=== PATIENT | female | born 1960 | race Caucasian/White ===

== ENCOUNTER 2024-08-19 14:02 | Outpatient (REF) | payer BC, SELFPAY ==
--- OUTSIDE RECORDS SUMMARY | 2024-08-19 16:20 | XMS_ITS | Continuity of Care Document ---
Author Organization [facility] [address] [facility] [address] [place] [address] Phone [phone] Care Team Providers Care Plating Tank Operator Apprentice Name Role Phone Arabella Forde M.D. Care Team Informati on Spanish Literature Professor [phone] Problems Active Problems Provider Date Morphea Arabella [...] Indications Order ing Provider Date Sulfamethoxazole/Trimethop rim [id number] Tablets take 1 tablet by mouth twice a day for 7 days 14tabs Arabella Forde M.D. 05/30/2024 Vitamin I1700rbg (5000 Ut) Capsules 3 by mouth every week Arabella Forde M.D. 10/27/2022 Levothyroxine Vevgtc173beg Tablets Take 1 Tablet Daily Except 1/2 Tab Sundays 90tabs Arabella Forde M.D. 07/29/2022 Hydroxychloroquine Uwmismd985ot Tablets 1 bid Enrrique Knight, Hqigumlmmq17dl Capsules DR 1 by mouth every other day 90caps Arabella Forde M.D. Pnwvoqlhb540kp Tablets 1 by mouth every day Arabella Forde M.D. Calcium 600 High Gwqanru955ur Tablets Take 1 by mouth qd Unknown [...] Range Note Urinalysis, Complete 05/30/2024 [facility] [place] 1.014 1.005-1.03 0 1 pH 5.5 5.0-7.5 [...] See Comment: 4 Comprehensive Metabolic Panl 11/01/2023 [facility] Glucose 88 mg/dL [...] 88 ML/MIN/1.7 3M2 5 Lipid Panel 11/01/2023 [facility] Cholesterol, Total 171 mg/dL (<200) Triglyceride 78 mg/dL (<150) HDL Chol 75 mg/dL (>39) LDL Cholesterol, Calculated 80 mg/dL (0-130) Non HDL Cholesterol (Calc) 96 mg/dL (<160) Laboratory test finding 11/01/2023 [facility] TSH With Reflex To FT4 2.88 uIU/mL (0.4-4.2) 25Oh Vitamin D 44.8 NG/ML (20-50 ) N-Telopeptide Cross Links, Urine 06/16/2023 [facility] Cross Linked N-Telopeptides 175 6 Creat, Urine 111.0 7 N-Telopeptide/C reat Ratio 18 8 NTX Interpretaion Comment 9 Laboratory test finding 04/25/2023 [facility] TSH With Reflex To FT4 3.81 uIU/mL (0.4-4.2) Comprehensive Metabolic Panl 10/25/2022 [facility] Glucose 95 mg/dL [...] ML/MIN/1.7 3M2 10 Laboratory test finding 10/25/2022 [facility] TSH With Reflex To FT4 2.73 uIU/mL (0.4-4.2) Vitamin B12 2997 pg/mL High (232-1245 ) 25Oh Vitamin D 57.1 NG/ML High (20-50 ) Laboratory test finding 04/20/2022 [facility] Hemoglobin A1c 5.1 % (4.0-5.6) 11 TSH With Reflex To FT4 2.75 uIU/mL (0.4-4.2) Glucose 90 mg/dL (70-99) Urinalysis W/Reflex Culture 04/17/2022 [facility] Appear/Color LIGHT YELLOW 12 SP. [place] 1.011 (1.002-1.0 30) Urine PH 5.5 (5.0-8.0) [...] INDICATE <SEE NOTE> 13 Culture Urine 04/17/2022 [facility] Specimen Description URINE [...] Estab. Unit: nmol BCE Test performed at [facility] [address] 7 Reference range: Not Estab. Unit: mg/dL Test performed by [facility], [address] [place] [address] 8 Reference range: 0 t o 89 [...] value is <or EQ 38 nM BCE/mM SUBSTATION OPERATOR HELPER, or NTx has decreased >or EQ 30% [...] J Bone Min Res.11(1):M757,1995 [place] [address] 10 Creatinine based est imated glomerular filtration (eGFR) in adults is calculated using the National Kidney Foundation recommended 2020 CKD-EPI equation. Estimates GFR from serum creatinine, age and sex. 11 MONITORING: In known diabetic patients, hemoglobin A1c targets should be discussed with health care provider. DIAGNOSTIC USE: The [place] Diabetes Association (ADA) and the World Health [...] 13 CULTURE INDICATED 14 NONE Reflexed from [id number] 15 >100,000 COL/ML ESCH ERICHIA COLI This [...] SUSCEPTIBLE Procedures Date Code Description Status 11/01/2023 97640 Collection Of Venous Blood B y Venipuncture Completed 04/25/2023 52560 Collection Of Venous Blood B y Venipuncture Completed 10/25/2022 36727 Collection Of Venous Blood B y Venipuncture Completed 04/20/2022 47208 Collection Of Venous Blood B y Venipuncture [...] Status Appt Kishore Leo, Closed 2023 [address] [place], [place] [id number] [phone] Gabby Blue Closed [address] [facility] [address] [place] [address] [phone] Puja Paul MD Closed [address] [address] [phone] Kishore Knight, Closed [address] [place] [address] [phone] Daisy Jo Closed [address] [place], [place] 27[address] [phone] Kishore Knight, Closed [address] [place], [place] [id number] [phone] Iliana Blue Closed Physical Therapy [address] [place] [address] [phone] Puja Paul MD Closed [address] [id number] [phone] Kishore Knight, Closed [address] [place] [address] [phone]
[2024-08-19 16:24] LABS: MANUAL DIFF FLAG NO
[2024-08-19 17:08] LABS: Basophils Absolute Auto 0.1 X10*3/uL (0.0-0.2); Basophils Percent Auto 1.3 % (0-2); Eosinophils Absolute Auto 0.2 X10*3/uL (0.0-0.4); Eosinophils Percent Auto 3.9 % (0-4); Hemoglobin 13.8 g/dl (12.0-16.0); Imm Gran Abs Auto 0.02 X10*3/uL (0.00-0.03); Imm Gran Pct Auto 0.4 % (0.0-0.4); Lymphocytes Absolute Auto 1.7 X10*3/uL (1.2-4.9); Lymphocytes Percent Auto 31.1 % (20-40); Mean Corpuscular HGB Conc 34.5 g/dl (31.0-35.0); Mean Corpuscular Hemoglobin 35.1 pg (27.0-33.0); Mean Corpuscular Volume 101.8 fL (80.0-98.0); Mean Platelet Volume 11.7 fL (9.4-12.3); Monocytes Absolute Auto 0.7 X10*3/uL (0.1-1.2); Monocytes Percent Auto 12.9 % (2-11); Neutrophils Absolute Auto 2.8 x10*3/uL (2.0-8.3); Neutrophils Percent Auto 50.4 % (45-73); Platelet Count 173 X10*3/uL (160-400); Red Blood Count 3.93 X10*6/uL (4.20-5.50); Red Cell Distribution Width 11.7 % (11.0-16.0); White Blood Count 5.4 X10*3/uL (4.8-10.8)
[2024-08-19 17:25] LABS: Appearance Urine Clear; Color Urine Yellow; Glucose Urine UA Negative (Negative); Leukocyte Esterase Urine Negative (Negative); Nitrite Urine Negative (Negative); PH 5.5 (5.0-9.0); Specific Gravity - Urine 1.015 (1.005-1.025); Urine Blood Negative (Negative); Urine Ketones Negative (Negative); Urine Protein Negative (Neg-Trace)
[2024-08-19 17:29] LABS: Bacteria Urine None Seen (None Seen); Hyaline Casts Urine 0-2 /LPF (0-2); RBC Urine 0-2 /HPF (0-2); Squamous Epithelial Cell Urine 0-2 /HPF (0-2); WBC Urine 0-5 /HPF (0-5)
[2024-08-19 17:44] LABS: Estimated Glomerular Filt Rate > 60
[2024-08-19 18:27] LABS: Erythrocyte Sedimentation Rate 14 MM/HR (0-20)
[2024-08-20 08:22] LABS: HBS Num1 8.38 mIU/mL (0-7.99); HBsAGNum1 0.52 S/CO (0.00-0.99); Hepatitis B Core Antibody Nonreactive (Nonreactive); Hepatitis B Surface Antigen Negative (Negative); ~Hepatitis C Antibody Nonreactive (Nonreactive)
[2024-08-20 09:55] LABS: HBS Num2 9.05 mIU/mL (0-7.99); HBS Num3 8.64 mIU/mL (0-7.99); ~Hepatitis B Surface Antibody GRAYZONE (Nonreactive)
[2024-08-21 08:18] LABS: Complement C3 153 mg/dL (83-193)
[2024-08-22 05:44] LABS: TS Negative Control Passed; TS Panel A 0; TS Panel B 0; TS Positive Control Passed; TSpotTB Negative (Negative)
== END 2024-08-19 14:03 | disposition home or self-care (01) ==
LOC: HO.LAB 14:02
PROVIDERS: PCP Internal Medicine Endocrinology, Diabetes & Metabolism; Visit Provider Internal Medicine Rheumatology
DX: M35.00 Sjogren syndrome, unspecified (principal); R35.0 Frequency of micturition
CPT/HCPCS: 36415; 81001; 82565; 85025; 85652; 86140; 86160; 86481; 86704; 86706; 86803; 87340

== ENCOUNTER 2024-08-19 14:02 | Outpatient (AMB) | payer BC, SELFPAY ==
--- OUTSIDE RECORDS SUMMARY | 2024-08-19 14:10 | XMS_ITS | Continuity of Care Document ---
Author Organization [facility] [address] tre[address] [facility] [address] [place] [address] Phone [phone] Care Team Providers Care Director Technical Name Role Phone Arabella Forde M.D. Care Team Informati on Swimming Pool Salesperson [phone] Problems Active Problems Provider Date Morphea Arabella Forde M.D. Ons et: 04/20/2022 Hyperprolactinemia Arabella Forde M.D. Onset: 04/20/2022 Hypothyroidism Arabella Forde M.D. Ons et: 04/20/2022 Gastroesophageal reflux disease Arabella Cordova M.D. Onset: 04/20/2022 Obesity Arabella Forde M.D. Ons et: 04/20/2022 Gallstone Arabella Forde M.D. Ons et: 04/20/2022 Sjogren's syndrome Arabella Forde M.D. Onset: 04/20/2022 Nonalcoholic steatohepatitis Arabella alexander M.D. Onset: 04/20/2022 Lymphadenopathy Arabella Forde M.D. Ons et: 04/20/2022 Contracture of palmar fascia Arabella alexander M.D. Onset: 04/20/2022 Inflammatory polyarthropathy Arabella alexander M.D. Onset: 04/20/2022 Hilda thyroiditis Mya Dangelo Onset: 10/25/2022 Osteoporosis Arabella Forde M.D. 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 05/30/2024 Vitamin [id number] (5000 Ut) Capsules 3 by mouth every week Arabella Forde M.D. 10/27/2022 Levothyroxine Dmljsv429xvv Tablets Take 1 Tablet Daily Except 1/2 Tab Sundays 90tabs Arabella Forde M.D. 07/29/2022 Hydroxychloroquine Bjanidb588xv Tablets 1 bid Enrrique Knight, Biazpmkbqx86gm Capsules DR 1 by mouth every other day 90caps Arabella Forde M.D. Aqmukmryg221ei Tablets 1 by mouth every day Arabella Forde M.D. Calcium 600 High Pbfrocg809vz Tablets Take 1 by mouth qd Unknown Vitamin B ComplexCapsules 1 by mouth every day Arabella Forde M.D. Vital Signs Date Vital Result Comment 05/02/2024 3:03pm BP Systolic 100 mmHg BP Diastolic 70 mmHg Heart Rate 74 /min Height 63 inches 5'3 Weight 186.31 lb BMI (Body Mass Index) 33.0 kg/m2 Results Test Acquired Date Facility Test Result H/L Range Note Urinalysis, Complete 05/30/2024 [facility] [place] 1.014 1.005-1.03 0 1 pH 5.5 5.0-7.5 Urine-Color Yellow Yellow Appearance Clear Clear WBC Esterase Trace Abnormal Negative Protein Negative Negative/T race Glucose Negative Negative Ketones Negative Negative Occult Blood Negative Negative Bilirubin Negative Negative Urobilinogen,Se mi-Qn 0.2 mg/dL 0.2-1.0 Nitrite, Urine Negative Negative Microscopic Examination See below: 2 Microscopic Examination TNP WBC 6-10 /hpf Abnormal 0 - 5 RBC None seen /hpf 0 - 2 Epithelial Cells (non renal) None seen /hpf 0 - 10 Epithelial Cells (renal) TNP Casts None seen /lpf None seen Cast Type TNP Crystals TNP Crystal Type TNP Mucus Threads TNP Bacteria None seen None seen/Few Yeast TNP Trichomonas TNP Comment TNP Urine Culture, Comprehensive 05/30/2024 [facility] Urine Culture,Compreh ensive Final report 3 Result 1 See Comment: 4 Comprehensive Metabolic Panl 11/01/2023 [facility] Glucose 88 mg/dL (70-99) BUN 17 mg/dL (8-23) Creatinine 0.8 mg/dL (0.5-1.0) Sodium 140 mmol/L (133-145) Potassium 4.1 mmol/L (3.6-5.2) Chloride 102 mmol/L (98-107) Bicarbonate 24 mmol/L (22-29) Anion Gap 14 (4-17) Albumin 4.6 GM/DL (3.4-4.8) Calcium 9.6 mg/dL (8.6-10.5) Bilirubin,Total 0.3 mg/dL (0-1.2 ) Total Protein 7.1 GM/DL (6.2-8.2 ) Ag Ratio 1.8 Ast 25 U/L (0-32) Alk Phos 63 U/L (35-104) Alt 26 U/L (0-33) Estimated GFR Creatinine 88 ML/MIN/1.7 3M2 5 Lipid Panel 11/01/2023 [facility] Cholesterol, Total 171 mg/dL (<200) Triglyceride 78 mg/dL (<150) HDL Chol 75 mg/dL (>39) LDL Cholesterol, Calculated 80 mg/dL (0-130) Non HDL Cholesterol (Calc) 96 mg/dL (<160) Laboratory test finding 11/01/2023 [facility] TSH With Reflex To FT4 2.88 uIU/mL (0.4-4.2) 25Oh Vitamin D 44.8 NG/ML (20-50 ) N-Telopeptide Cross Links, Urine 06/16/2023 [facility] Cross Linked N-Telopeptides 175 6 Creat, Urine 111.0 7 N-Telopeptide/C reat Ratio 18 8 NTX Interpretaion Comment 9 Laboratory test finding 04/25/2023 [facility] TSH With Reflex To FT4 3.81 uIU/mL (0.4-4.2) Comprehensive Metabolic Panl 10/25/2022 [facility] Glucose 95 mg/dL (70-99) BUN 15 mg/dL (8-23) Creatinine 0.8 mg/dL (0.5-1.0) Sodium 143 mmol/L (133-145) Potassium 4.1 mmol/L (3.6-5.2) Chloride 103 mmol/L (98-107) Bicarbonate 27 mmol/L (22-29) Anion Gap 13 (4-17) Albumin 4.8 GM/DL (3.4-4.8) Calcium 10.2 mg/dL (8.6-10.5) Bilirubin,Total 0.3 mg/dL (0-1.2 ) Total Protein 7.6 GM/DL (6.2-8.2 ) Ag Ratio 1.7 Ast 20 U/L (0-32) Alk Phos 74 U/L (35-104) Alt 17 U/L (0-33) Estimated GFR Creatinine 81 ML/MIN/1.7 3M2 10 Laboratory test finding 10/25/2022 [facility] TSH With Reflex To FT4 2.73 uIU/mL (0.4-4.2) Vitamin B12 2997 pg/mL High (232-1245 ) 25Oh Vitamin D 57.1 NG/ML High (20-50 ) Laboratory test finding 04/20/2022 [facility] Hemoglobin A1c 5.1 % (4.0-5.6) 11 TSH With Reflex To FT4 2.75 uIU/mL (0.4-4.2) Glucose 90 mg/dL (70-99) Urinalysis W/Reflex Culture 04/17/2022 [facility] Appear/Color LIGHT YELLOW 12 SP. [place] 1.011 (1.002-1.0 30) Urine PH 5.5 (5.0-8.0) Urine Albumin NEGATIVE (Neg) Urine Glucose NEGATIVE (Neg) Urine Ketones NEGATIVE (Neg) Urine Bilirubin NEGATIVE (Neg) Urine Hemoglobin NEGATIVE (Neg) Urine Nitrite POSITIVE Abnormal (Neg) Urine Leukocyte 3+ Abnormal (Neg) Urobilinogen NORMAL mg/dL (Norm) Urine WBCs 61 /HPF High (0-5) Urine RBCs 2 /HPF (0-3) Bacteria SLIGHT HPF Abnormal (Neg) Mucus SLIGHT /LPF Squamous Epith 1 /HPF (0-8) Clarity TURBID Abnormal (Clear) Culture Indication CULTURE INDICATE <SEE NOTE> 13 Culture Urine 04/17/2022 [facility] Specimen Description URINE Special Requests NONE Reflexed fr <SEE NOTE> 14 Culture >100,000 COL/ML <SEE NOTE> Abnormal 15 Report Status FINAL 04/20/2022 16 1 SRC:UC 2 Microscopic was kd cated and was performed. 3 Source of Specimen: UC 4 Source of Specimen: UC Mixed urogenital cristopher 10,000-25,000 colony forming units per mL 5 Creatinine based est imated glomerular filtration (eGFR) in adults is calculated using the National Kidney Foundation recommended 2020 CKD-EPI equation. Estimates GFR from serum creatinine, age and sex. 6 Reference range: Not Estab. Unit: nmol BCE Test performed at [facility] [address] 7 Reference range: Not Estab. Unit: mg/dL [facility] [address] [place] [address] 8 Reference range: 0 t o 89 Unit: nM BCE/mM Cr 9 (NOTE) The N-telopeptide and Creatinine are used to calculate the N-telo/Creat. Ratio which is referred to as NTx . Suggested guidelines for the clinical use of NTx are as follows: 1. Menopausal Women not on Hormone Replacement Therapy (HRT): Women with a baseline NTx value >38 are at significant risk for a decrease in bone mineral density (BMD) after 1 year compared to women on HRT. The probability of a decline in BMD increases with NTx value as follows: (1): Baseline NTx Probability of Decrease in BMD 18- 38 1.4 p EQ 0.28 38- 51 2.5 p EQ 0.03 51- 67 3.8 p EQ 0.0006 67-188 17.3 p EQ 0.0001 2. Menopausal Women Receiving Antiresorptive Therapy: The probability that treatment is effective after three months is increased when the measured NTx value is <or EQ 38 nM BCE/mM PROJECT ENGINEERING MANAGER, or NTx has decreased >or EQ 30% from baseline.[1] 3. Patients with Paget's Disease of Bone: The probability that treatment is effective after one month is increased when the measured NTx value is within the reference range, or NTx has decreased >or EQ 30% from baseline.[2] 1. Padma CH, Drea NH, Vincent GS, et al. Am J Med, 102:29-37,1996. (1):M757, 1996. 2. Hector H, Vy Ambrosio, et al. J Bone Min Res.11(1):M757,1995 [place] [address] 10 Creatinine based est imated glomerular filtration (eGFR) in adults is calculated using the National Kidney Foundation recommended 2020 CKD-EPI equation. Estimates GFR from serum creatinine, age and sex. 11 MONITORING: In known diabetic patients, hemoglobin A1c targets should be discussed with health care provider. DIAGNOSTIC USE: The [place] Diabetes Association (ADA) and the World Health Organization (WHO) recommend the use of HbA1c to diagnose diabetes using a threshold of 6.5%. Patients who have an HbA1c between 5.7% and 6.4% are considered at increased risk for developing diabetes in the future. CAUTION: Falsely low HbA1c results may be observed in patients with hemolytic anemia, homozygous forms of abnormal hemoglobin (e.g. SS, CC, SC), , recent blood loss or hemoglobin F greater than 7%. Fructosamine may be used as an alternate test in these cases. REFERENCE: ADA: Standards of Medical Care in Diabetes 2020, The Journal of Clinical and Applied Research and Education Volume 43, Supplement 1 12 TURBID 13 CULTURE INDICATED 14 NONE Reflexed from [id number] 15 >100,000 COL/ML ESCH ERICHIA COLI This isolate was identified using Maldi-TOF system 16 FINAL 04/20/2022 ORGANISM >100,000 COL/ML ESCHERICHIA COLI This isolate was identified using Maldi-TOF system METHOD MIN. INHIB. CONC. (MCG/ML) AMPICILLIN SUSCEPTIBLE AMPICILLIN/SULBACTAM SUSCEPTIBLE AMOXICILLIN/CLAVULAN SUSCEPTIBLE CEFAZOLIN SUSCEPTIBLE CEFEPIME SUSCEPTIBLE CEFTRIAXONE SUSCEPTIBLE CIPROFLOXACIN SUSCEPTIBLE ERTAPENEM SUSCEPTIBLE GENTAMICIN SUSCEPTIBLE LEVOFLOXACIN SUSCEPTIBLE MEROPENEM SUSCEPTIBLE NITROFURANTOIN SUSCEPTIBLE PIPERACILLIN/TAZOBAC SUSCEPTIBLE TRIMETH/SULFAMETHOX SUSCEPTIBLE TETRACYCLINE SUSCEPTIBLE Procedures Date Code Description Status 11/01/2023 42232 Collection Of Venous Blood B y Venipuncture Completed 04/25/2023 66631 Collection Of Venous Blood B y Venipuncture Completed 10/25/2022 42188 Collection Of Venous Blood B y Venipuncture Completed 04/20/2022 08332 Collection Of Venous Blood B y Venipuncture Completed Medical Devices Description No Information Available Encounters Type Date Location Provider Dx Diagnosis Office Visit 05/02/2024 2:45p Main Office Arabella Forde M.D. E03.9 Hypothyroidism, unspecified M35.05 Sjogren syndrome wit h inflammatory arthritis K21.9 Gastro-esophageal re flux disease without esophagitis M81.0 Age-related osteopor osis w/o current pathological fracture Assessments Date Code Description Provider 05/02/2024 E03.9 Hypothyroidism, unspecified Arabella Forde M.D. 05/02/2024 M35.05 Sjogren syndrome with inflammatory arthritis Arabella Forde M.D. 05/02/2024 K21.9 Gastro-esophagea l reflux disease without esophagitis Arabella Forde M.D. 05/02/2024 M81.0 Age-related oste oporosis without current pathological fracture Arabella Forde M.D. Plan of Treatment Future Appointment(s):* 10/31/2024 1:30 pm - Arabella Forde M.D. at Main Office 05/02/2024 - Arabella Forde M.D.* E03.9 Hypothyroidism, unspecified * M35.05 Sjogren syndrome with inflammatory arthritis * K21.9 Gastro-esophageal reflux disease without esophagitis * M81.0 Age-related osteoporosis without current pathological fracture Functional Status Description No Information Available Mental Status Description No Information Available Referrals Refer to Dr Reason for Referral Status Appt Kishore Leo, Closed 2023 [address] [place], [place] [id number] [phone] Gabby Blue Closed [address] [facility] [address] [place] [address] [phone] Puja Paul MD Closed [address] [address] [phone] Kishore Knight, Closed [address] [place] [address] [phone] Daisy Jo Closed [address] [place], [place] [address] [phone] Kishore Knight, Closed [address] [place], [place] 740[address] [phone] Iliana Blue Closed [facility] [address] [place] [address] [phone] Puja Paul MD Closed [address] [id number] [phone] Kishore Knight, Closed [address] [place] [address] [phone]
[2024-08-19 14:12] VITALS: BP 118/64; PULSE 69; O2SAT 98; BMI 34.1
--- NOTE | 2024-08-19 14:12 | MHC.OFFVIS ---
Vital Signs 08/19/24 14:12 Height 5 ft 3 in Weight 192 lb 10.944 oz BMI 34.1 BP 118/64 Blood Pressure Location Lt brachial Position Sitting Pulse 69 Pulse Source Pulse Oximeter Pulse Oximetry (%) 98 Oxygen Delivery Method Room Air Intake Visit Reasons: SS Intake Note: Patient presents for follow up on Sjorgen's syndrome, she needs refill of Leflunomide 20 mg. Allergies diphenhydramine [From Benadryl Allergy] Allergy (Mild, Verified 08/19/24 14:21) restleless legs HPI HPI SS: Details: Urinary frequency and urgency in the last month. She was previously treated with bactrim in May by PCP. Overall less pain since being on leflunomide consistently for the last two months. She held leflunomide when she had a viral illness/COVID-19. Uses sustane as needed. She will be seeing Ophthalmology in September for eye exam. She continues to have dry mouth but it is tolerable. She had labs done in July, which revealed creatinine of 1.2 with estimated GFR 48.2. Review of Systems Const All systems reviewed & are unremarkable except as noted in HPI and below Physical Exam Vital Signs: Last Vital Signs Pulse 69 08/19/24 14:12 BP 118/64 08/19/24 14:12 Pulse Ox 98 08/19/24 14:12 Oxygen Delivery Method Room Air 08/19/24 14:12 BMI result Body Mass Index 34.1 Const Other: General: Comfortable CVS: RRR Respiratory: clear to auscultation bilaterally. Good respiratory effort Skin: No lesions seen MSK: Nontender MCPs with slight synovitis left 2nd and 3rd MCP. Good range of motion of upper extremity and lower extremity. Lymph nodes: Left submandibular lymph node palpated Assessment & Plan Assessment & Plan (1) Sjogren syndrome: Comment: With inflammatory arthritis better controlled since being on leflunomide for the last 2 months. I have reviewed recent labs with patient that reveals MARYLOU when compared to labs from 06/2023. I will repeat labs this visit. Fatigue is uncontrolled. We discussed having intermittent FMLA during flares, which I agree to support. Code(s): M35.00 - Sjogren syndrome, unspecified Category: Medical Qualifiers: Sjogren organ or system involvement: other organ involvement Qualified Code(s): M35.09 - Sjogren syndrome with other organ involvement Plan: Labs ordered Continue hydroxychloroquine 400 mg daily Continue leflunomide 20 mg daily Patient will bring in [facility] paperwork Monitoring cervical lymph nodes clinically. She has previously had ENT evaluation and repeat neck ultrasounds, which have shown stable benign lymph node enlargement. Return to clinic in 3 months (2) Other half-way (current) drug therapy: Code(s): Z79.899 - Other termite control service representative (current) drug therapy Category: Medical Plan: See above (3) Urinary frequency: Comment: Recurrent symptoms. Previously treated for UTI. We will obtain urine studies this visit. Code(s): R35.0 - Frequency of micturition Category: Medical Plan: Urine studies ordered (4) MARYLOU (acute kidney injury): Comment: Creatinine is 1.2 07/2024, which has increased from 0.8 06/2024 Code(s): N17.9 - Acute kidney failure, unspecified Category: Medical Plan: Creatinine ordered See above Orders: Orders T Spot TB Today M35.00 - Sjogren syndrome, unspecified, R35.0 - Frequency of micturition Complement C3 Today M35.00 - Sjogren syndrome, unspecified, R35.0 - Frequency of micturition Hepatitis B,C Profile Today M35.00 - Sjogren syndrome, unspecified, R35.0 - Frequency of micturition Creatinine Today M35.00 - Sjogren syndrome, unspecified, R35.0 - Frequency of micturition Complete Blood Count Auto Diff Today M35.00 - Sjogren syndrome, unspecified, R35.0 - Frequency of micturition C Reactive Protein Today M35.00 - Sjogren syndrome, unspecified, R35.0 - Frequency of micturition Erythrocyte Sedimentation Rate Today M35.00 - Sjogren syndrome, unspecified, R35.0 - Frequency of micturition UA w Microscopic Today M35.00 - Sjogren syndrome, unspecified, R35.0 - Frequency of micturition Complement C4 Today M35.00 - Sjogren syndrome, unspecified, R35.0 - Frequency of micturition Coding Level of Care Code Est Pt Level 4 (08630) Complex EM visit Add On G2211 Diagnoses Sjogren's syndrome with other organ involvement M35.09 Sjogren organ or system involvement: other organ involvement Other half-way (current) drug therapy Z79.899 Urinary frequency R35.0 MARYLOU (acute kidney injury) N17.9
== END 2024-08-19 15:14 | disposition home or self-care (01) ==
PROVIDERS: PCP Internal Medicine Endocrinology, Diabetes & Metabolism; Referring Provider Internal Medicine Endocrinology, Diabetes & Metabolism; Visit Provider Internal Medicine Rheumatology
DX: M35.09 Sjogren syndrome with other organ involvement (principal); Z79.899 Other long term (current) drug therapy; R35.0 Frequency of micturition; N17.9 Acute kidney failure, unspecified
CPT/HCPCS: 99214

== ENCOUNTER 2024-11-19 14:26 | Outpatient (REF) | payer BC, SELFPAY ==
[2024-11-19 18:11] LABS: MANUAL DIFF FLAG NO
[2024-11-19 18:29] LABS: Basophils Absolute Auto 0.1 X10*3/uL (0.0-0.2); Basophils Percent Auto 0.8 % (0-2); Eosinophils Absolute Auto 0.3 X10*3/uL (0.0-0.4); Eosinophils Percent Auto 4.3 % (0-4); Hematocrit 41.1 % (37.0-47.0); Hemoglobin 14.2 g/dl (12.0-16.0); Imm Gran Abs Auto 0.01 X10*3/uL (0.00-0.03); Imm Gran Pct Auto 0.2 % (0.0-0.4); Lymphocytes Absolute Auto 1.5 X10*3/uL (1.2-4.9); Lymphocytes Percent Auto 24.5 % (20-40); Mean Corpuscular HGB Conc 34.5 g/dl (31.0-35.0); Mean Corpuscular Hemoglobin 35.1 pg (27.0-33.0); Mean Corpuscular Volume 101.7 fL (80.0-98.0); Monocytes Absolute Auto 0.7 X10*3/uL (0.1-1.2); Monocytes Percent Auto 11.2 % (2-11); Neutrophils Absolute Auto 3.6 x10*3/uL (2.0-8.3); Platelet Count 185 X10*3/uL (160-400); Red Blood Count 4.04 X10*6/uL (4.20-5.50); Red Cell Distribution Width 11.7 % (11.0-16.0); White Blood Count 6.1 X10*3/uL (4.8-10.8)
[2024-11-19 18:37] LABS: Rheumatoid Factor < 13.0 IU/mL (<15.0)
[2024-11-19 18:39] LABS: Alanine Aminotransferase 40 U/L (0-31); Aspartate Amino Transferase 32 U/L (5-31); C Reactive Protein 0.29 mg/dL (< or = 0.50); Estimated Glomerular Filt Rate > 60
[2024-11-19 19:18] LABS: Erythrocyte Sedimentation Rate 18 MM/HR (0-20)
[2024-11-20 16:32] LABS: Complement C3 161 mg/dL (83-193)
[2024-11-21 18:32] LABS: Antibody to SS-A Antigen <1.0 NEG AI (<1.0 NEG); Antibody to SS-B Antigen <1.0 NEG AI (<1.0 NEG)
[2024-11-25 10:58] LABS: Anti Nuclear Antibody Screen POSITIVE (NEGATIVE)
== END 2024-11-19 14:27 | disposition home or self-care (01) ==
LOC: HO.HKASLDS 14:26
PROVIDERS: PCP Internal Medicine Endocrinology, Diabetes & Metabolism; Visit Provider Internal Medicine Rheumatology
DX: M35.09 Sjogren syndrome with other organ involvement (principal); Z79.60 Long term (current) use of unspecified immunomodulators and immunosuppressants; Z79.899 Other long term (current) drug therapy
CPT/HCPCS: 36415; 82565; 84450; 84460; 85025; 85652; 86038; 86039; 86140; 86160; 86235; 86431

== ENCOUNTER 2024-11-19 14:26 | Outpatient (AMB) | payer BC, SELFPAY ==
[2024-11-19 14:32] VITALS: BP 120/70; PULSE 70; O2SAT 97; BMI 32.8
--- NOTE | 2024-11-19 14:32 | A.OFFVIS_ITS ---
Vital Signs 11/19/24 14:32 Height 5 ft 3 in Weight 185 lb 6.54 oz BMI 32.8 BP 120/70 Blood Pressure Location Lt brachial Position Sitting Pulse 70 Pulse Source Pulse Oximeter Pulse Oximetry (%) 97 Oxygen Delivery Method Room Air Intake Visit Reasons: Follow Up 3mo Intake Note: Patient presents for follow up on Sjorgen's syndrome Allergies diphenhydramine [From Benadryl Allergy] Allergy (Mild, Verified 11/19/24 14:34) restleless legs HPI HPI Follow Up 3mo: Details: She continues to have fatigue. She had to use FMLA on occasion when she has increased fatigue. Joint stiffness in hands is all day. No new joint swelling. She is tolerating leflunomide. She has noted that there is reduction in swelling in her lymph nodes since being on leflunomide. She has had intermittent pain left clavicular region for 4 months. Review of Systems Const All systems reviewed & are unremarkable except as noted in HPI and below Physical Exam Vital Signs: Last Vital Signs Pulse 70 11/19/24 14:32 BP 120/70 11/19/24 14:32 Pulse Ox 97 11/19/24 14:32 Oxygen Delivery Method Room Air 11/19/24 14:32 BMI result Body Mass Index 32.8 Const Other: General: Comfortable CVS: RRR Respiratory: clear to auscultation bilaterally. Good respiratory effort Skin: No lesions seen MSK: Nontender MCPs with slight synovitis left 2nd MCP. She has localized tenderness to proximal clavicle away from sternoclavicular joint. Good range of motion of upper extremity and lower extremity. Lymph nodes: Left submandibular lymph node palpated Assessment & Plan Assessment & Plan (1) Sjogren syndrome: Comment: With inflammatory arthritis better controlled since being on leflunomide. Rheumatology history: She has Sjogren syndrome biopsy-proven with gland focus score 4. JANEY negative. SSA antibody positive. Inflammatory arthritis affecting hands. HCQ 03/2021-, leflunomide 03/2024- Code(s): M35.00 - Sjogren syndrome, unspecified Category: Medical Qualifiers: Sjogren organ or system involvement: other organ involvement Qualified Code(s): M35.09 - Sjogren syndrome with other organ involvement Plan: Continue hydroxychloroquine 400 mg daily. Eye exam 10/2023 OCT okay. Visual field not reliable. She is rescheduled for repeat visual field test in December. Continue leflunomide 20 mg daily Labs for disease monitoring and drug monitoring on high-risk medication ordered Dry eyes: Technical Sourcing Recruiter recommended she try OTC artificial tears. I encouraged patient to try them. Return to clinic in 3 months (2) Pain of left clavicle: Comment: She has four-month history of localized pain to proximal left clavicle of unclear etiology. Code(s): M89.8X1 - Other specified disorders of bone, shoulder Category: Medical Plan: X-ray left clavicle ordered Orders: Orders Complete Blood Count Auto Diff Today Z79.60 - skilled nursing (current) use of unspecified immunomodulators and immunosuppressants Aspartate Amino Transferase Today Z79.60 - skilled nursing (current) use of unspecified immunomodulators and immunosuppressants Complement C3 Today M35.09 - Sjogren syndrome with other organ involvement Rheumatoid Factor Today M35.09 - Sjogren syndrome with other organ involvement JANEY Reflex Titer and Pattern Today M35.09 - Sjogren syndrome with other organ involvement XR clavicle LT Today M89.8X1 - Other specified disorders of bone, shoulder Creatinine Today Z79.60 - terminal worker (current) use of unspecified immunomodulators and immunosuppressants Alanine Aminotransferase Today Z79.60 - skilled nursing (current) use of unspecified immunomodulators and immunosuppressants Erythrocyte Sedimentation Rate Today Z79.899 - Other half-way (current) drug therapy C Reactive Protein Today Z79.899 - Other long wall shear operator (current) drug therapy Complement C4 Today M35.09 - Sjogren syndrome with other organ involvement Sjogren's Antibodies Today M35.09 - Sjogren syndrome with other organ involvement Medications: Changed From hydroxychloroquine 400 mg PO DAILY To hydroxychloroquine Replace previous prescription 400 mg (2 x 200 mg) PO DAILY 60 tabs 5RF Refilled leflunomide 20 mg PO DAILY 90 tabs 0RF Coding Level of Care Code Est Pt Level 4 (32399) Complex EM visit Add On G2211 Diagnoses Sjogren's syndrome with other organ involvement M35.09 Sjogren organ or system involvement: other organ involvement Pain of left clavicle M89.8X1
--- OUTSIDE RECORDS SUMMARY | 2024-11-19 16:47 | XMS_ITS | Continuity of Care Document ---
Author Organization [facility] [address] [facility] [address] [place] [address] Phone [phone] Care Team Providers Care Oracle Sql Developer Name Role Phone Arabella Forde M.D. Care Team Informati on Radiator Mechanic [phone] Problems Active Problems Provider Date Morphea Arabella [...] SIG Qnty Indications Order ing Provider Date Vitamin [id number] (5000 Ut) Capsules 3 by mouth every week Arabella Forde M.D. 10/27/2022 Levothyroxine [id number] Tablets Take 1 Tablet Daily Except 1 Tab Sundays 90tabs Arabella Forde M.D. 07/29/2022 Hydroxychloroquine [id number] Tablets 1 bid Enrrique Knight, Vjiejmcfjv14es Capsules DR 1 by mouth every day prn 90caps Arabella Forde M.D. Tkqwivpwr097rf Tablets 1 by mouth every day Arabella Forde M.D. Calcium 600 High Wyggncp332cb Tablets Take 1 by mouth qd Unknown Vitamin B ComplexCapsules 1 by mouth every day Arabella Forde M.D. Ttniowpoezv31dm Tablets Take 1 Tablet Daily Kishore Knight, History Medications Sulfamethoxazole/Trimethopri m [id number] Tablets take 1 tablet by mouth twice a day for 7 days 14tabs Arabella Forde M.D. 05/30/2024 - 10/31/2024 Vital Signs Date Vital Result Comment 10/31/2024 1:38pm BP Systolic 110 mmHg BP Diastolic 76 mmHg Heart Rate 92 /min Height 63 inches 5'3 Weight 187.25 lb BMI (Body Mass Index) 33.2 kg/m2 Results Test Acquired Date Facility Test Result H/L Range Note TSH Rfx on Abnormal to Free T4 10/31/2024 [facility] TSH Rfx on Abnormal to Free T4 1.990 uIU/mL 0.450-4.50 0 Vitamin D, 25-Hydroxy 10/31/2024 [facility] Vitamin D, 25-Hydroxy 64.0 ng/mL 30.0-100.0 1 Hemoglobin A1c 10/31/2024 [facility] Hemoglobin A1c 5.1 % 4.8-5.6 2 Urinalysis, Complete 05/30/2024 [facility] Specific [place] 1.014 1.005-1.03 0 3 pH 5.5 5.0-7.5 Urine-Color Yellow Yellow Appearance Clear Clear WBC Esterase Trace Abnormal Negative Protein Negative Negative/T race Glucose Negative Negative Ketones Negative Negative Occult Blood Negative Negative Bilirubin Negative Negative Urobilinogen,Se mi-Qn 0.2 mg/dL 0.2-1.0 Nitrite, Urine Negative Negative Microscopic Examination See below: 4 Microscopic Examination TNP WBC 6-10 /hpf Abnormal [...] 05/30/2024 [facility] Urine Culture,Compreh ensive Final report 5 Result 1 See Comment: 6 Comprehensive Metabolic Panl 11/01/2023 [facility] Glucose 88 mg/dL (70-99) [...] (0-33) Estimated GFR Creatinine 88 ML/MIN/1.7 3M2 7 Lipid Panel 11/01/2023 [facility] Cholesterol, Total 171 mg/dL (<200) Triglyceride 78 mg/dL (<150) HDL Chol 75 mg/dL (>39) LDL Cholesterol, Calculated 80 mg/dL (0-130) Non HDL Cholesterol (Calc) 96 mg/dL (<160) TSH With Reflex To FT4 11/01/2023 [facility] TSH With Reflex To FT4 2.88 uIU/mL (0.4-4.2) 25Oh Vitamin D 11/01/2023 [facility] 25Oh Vitamin D 44.8 NG/ML (20-50) N-Telopeptide Cross Links, Urine 06/16/2023 [facility] Cross Linked N-Telopeptides 175 8 Creat, Urine 111.0 9 N-Telopeptide/C reat Ratio 18 10 NTX Interpretaion Comment 11 TSH With Reflex To FT4 04/25/2023 [facility] TSH With Reflex To FT4 3.81 uIU/mL (0.4-4.2) Comprehensive Metabolic Panl 10/25/2022 [facility] Glucose 95 mg/dL (70-99) [...] (0-33) Estimated GFR Creatinine 81 ML/MIN/1.7 3M2 12 TSH With Reflex To FT4 10/25/2022 [facility] TSH With Reflex To FT4 2.73 uIU/mL (0.4-4.2) Vitamin B12 10/25/2022 [facility] Vitamin B12 2997 pg/mL High (232-1245) 25Oh Vitamin D 10/25/2022 [facility] 25Oh Vitamin D 57.1 NG/ML High (20-50) Hemoglobin A1c 04/20/2022 [facility] Hemoglobin A1c 5.1 % (4.0-5.6) 13 TSH With Reflex To FT4 04/20/2022 [facility] TSH With Reflex To FT4 2.75 uIU/mL (0.4-4.2) Glucose 04/20/2022 [facility] Glucose 90 mg/dL (70-99) Urinalysis W/Reflex Culture 04/17/2022 [facility] Appear/Color LIGHT YELLOW 14 SP. [place] 1.011 (1.002-1.0 30) Urine PH 5.5 (5.0-8.0) [...] (Clear) Culture Indication CULTURE INDICATE <SEE NOTE> 15 Culture Urine 04/17/2022 [facility] Specimen Description URINE Special Requests NONE Reflexed fr <SEE NOTE> 16 Culture >100,000 COL/ML <SEE NOTE> Abnormal 17 Report Status FINAL 04/20/2022 18 1 Vitamin D deficiency has been defined by the [place] of [employer] and an Endocrine Society practice guideline as a level of serum 25-OH vitamin D less than 20 ng/mL (1,2). The Endocrine Society went on to further define vitamin D insufficiency as a level between 21 and 29 ng/mL (2). 1. IOM ([place] of [employer]). 2010. Dietary reference intakes for calcium and D. [place]: The National Academies Press. 2. Vaughn HILL, Dennis SORIA, Mukund PATTERSON, et al. Evaluation, treatment, and prevention of vitamin D deficiency: an Endocrine Society clinical practice guideline. JCEM. 2010; 96(7):1911-30. 2 Prediabetes: 5.7 - 6 .4 Diabetes: >6.4 Glycemic control for adults with diabetes: <7.0 3 SRC:UC 4 Microscopic was kd cated and was performed. 5 Source of Specimen: UC 6 Source of Specimen: UC Mixed urogenital cristopher 10,000-25,000 colony forming units per mL 7 Creatinine based est imated glomerular filtration (eGFR) in adults is calculated using the National Kidney Foundation recommended 2020 CKD-EPI equation. Estimates GFR from serum creatinine, age and sex. 8 Reference range: Not Estab. Unit: nmol BCE Test performed at [facility], [address] [place] [address] 9 Reference range: Not Estab. Unit: mg/dL Test performed by [facility], [address] [place] [address] 10 Reference range: 0 t o 89 Unit: nM BCE/mM Cr 11 (NOTE) The N-telopeptide and Creatinine are used [...] value is <or EQ 38 nM BCE/mM CARD HAND, or NTx has decreased >or EQ 30% [...] 102:29-37,1996. (1):M757, 1996. 2. Hector H, Vy J, et al. J Bone Min Res.11(1):M757,1996 Test performed at [address] [address] 12 Creatinine based est imated glomerular filtration (eGFR) in adults is calculated using the National Kidney Foundation recommended 2020 CKD-EPI equation. Estimates GFR from serum creatinine, age and sex. 13 MONITORING: In known diabetic patients, hemoglobin A1c targets should be discussed with health care provider. DIAGNOSTIC USE: The [place] Diabetes Association (ADA) and the World Health [...] Research and Education Volume 43, Supplement 1 14 TURBID 15 CULTURE INDICATED 16 NONE Reflexed from 370757 17 >100,000 COL/ML ESCH ERICHIA COLI This isolate was identified using Maldi-TOF system 18 FINAL 04/20/2022 ORGANISM >100,000 COL/ML ESCHERICHIA COLI This isolate was identified using Maldi-TOF system METHOD MIN. INHIB. CONC. (MCG/ML) AMPICILLIN SUSCEPTIBLE AMPICILLIN/SULBACTAM SUSCEPTIBLE AMOXICILLIN/CLAVULAN SUSCEPTIBLE CEFAZOLIN SUSCEPTIBLE CEFEPIME SUSCEPTIBLE CEFTRIAXONE SUSCEPTIBLE CIPROFLOXACIN SUSCEPTIBLE ERTAPENEM SUSCEPTIBLE GENTAMICIN SUSCEPTIBLE LEVOFLOXACIN SUSCEPTIBLE MEROPENEM SUSCEPTIBLE NITROFURANTOIN SUSCEPTIBLE PIPERACILLIN/TAZOBAC SUSCEPTIBLE TRIMETH/SULFAMETHOX SUSCEPTIBLE TETRACYCLINE SUSCEPTIBLE Procedures Date Code Description Status 10/31/2024 63600 Collection Of Venous Blood B y Venipuncture Completed 11/01/2023 76190 Collection Of Venous Blood B y Venipuncture Completed 04/25/2023 54687 Collection Of Venous Blood B y Venipuncture Completed 10/25/2022 77567 Collection Of Venous Blood B y Venipuncture Completed 04/20/2022 60841 Collection Of Venous Blood B y Venipuncture Completed Medical Devices Description No Information Available Encounters Type Date Location Provider Dx Diagnosis Office Visit 10/31/2024 1:30p Main Office Arabella Forde M.D. Z00.01 Encounter for general adult medical exam w abnormal findings E03.9 Hypothyroidism, unsp ecified E66.9 Obesity, unspecified M81.0 Age-related osteopor osis w/o current pathological fracture M35.05 Sjogren syndrome wit h inflammatory arthritis K21.9 Gastro-esophageal re flux disease without esophagitis Z68.33 Body mass index [BMI ] 33.0-33.9, adult Assessments Date Code Description Provider 10/31/2024 Z00.01 Encounter for ge neral adult medical examination with abnormal findings Arabella Forde M.D. 10/31/2024 E03.9 Hypothyroidism, unspecified Arabella Forde M.D. 10/31/2024 E66.9 Obesity, unspecified Erin Forde M.D. 10/31/2024 M81.0 Age-related oste oporosis without current pathological fracture Arabella Forde M.D. 10/31/2024 M35.05 Sjogren syndrome with inflammatory arthritis Arabella Forde M.D. 10/31/2024 K21.9 Gastro-esophagea l reflux disease without esophagitis Arabella Forde M.D. 10/31/2024 Z68.33 Body mass index [BMI] 33.0-3 3.9, adult Arabella Forde M.D. Plan of Treatment Future Appointment(s):* 04/24/2025 8:15 am - Arabella Forde M.D. at Main Office 10/31/2024 - Arabella Forde M.D.* Z00.01 Encounter for general adult medical examination with abnormal findings * E03.9 Hypothyroidism, unspecified * E66.9 Obesity, unspecified * M81.0 Age-related osteoporosis without current pathological fracture * M35.05 Sjogren syndrome with inflammatory arthritis * K21.9 Gastro-esophageal reflux disease without esophagitis * Z68.33 Body mass index [BMI] 33.0-33.9, adult Functional Status Description No Information Available Mental Status Description No Information Available Referrals Refer to Reason for Referral Status Appt Kishore Leo, Closed [address] [place] [address] [phone] Gabby Blue Closed [address] [address] [phone] Puja Paul MD Closed [address] [address] [phone] Kishore Knight, Closed [address] [place] [address] [phone] Daisy Jo Closed [address] [place] [address] [phone] Kishore Knight, Closed [address] [place] [address] [phone] Iliana Blue Closed Physical Therapy [address] [place] [address] [phone] Puja Paul MD Closed [address] [address] [phone] Kishore Knight, Closed [address] [place] [address] [phone]
--- OUTSIDE RECORDS SUMMARY | 2024-11-19 16:47 | XMS_ITS | Clinical Summary ---
Author Organization [facility] it Address [address] [place] [address] Care Team Providers Care Sprinkling System Installer Name Role Phone Unavailable Primary Care Provider Unavailabl e Social History Tobacco Use Types Packs/Day Years Used Date Smoking Tobacco: Never Assessed Comments Unknown Sex and Gender Information Value Date Recorded Sex Assigned at Not on file Legal Sex Female 11:38 AM EST Gender Identity Not on file Sexual Orientation Not on file Plan of Treatment Health Maintenance Due Date Last Done Comments DTaP,Tdap,and Td Vaccines (1 - Tdap) 1979 Cervical Cancer Screening: Pap Smear 1981 Pneumococcal Vaccine: 50+ Years (1 of 1 - PCV) 2010 Zoster Vaccines (1 of 2) 2010 Colorectal Cancer Screening: Colonoscopy 08/01/2022 Depression Screening 08/01/2022 HIV Screening 08/01/2022 Hepatitis C Screening 08/01/2022 Social Influencers of Health Screening 08/01/2022 COVID-19 Vaccine ( - season) 2024 Influenza Vaccine (#1) 2024 Breast Cancer Screening 11/26/2025 11/27/19 24, 11/24/2022, 11/22/2021, Additional history exists RSV Immunization Patients 60+ Years Old (1 - 1-dose 75+ series) 2035 HIB Vaccines Aged Out No longer eligi ble based on patient's age to complete this topic HPV Vaccines Aged Out No longer eligi ble based on patient's age to complete this topic Hepatitis A Vaccines Aged Out No long er eligible based on patient's age to complete this topic Hepatitis B Vaccines Aged Out No long er eligible based on patient's age to complete this topic IPV Vaccines Aged Out No longer eligi ble based on patient's age to complete this topic MMR Vaccines Aged Out No longer eligi ble based on patient's age to complete this topic Meningococcal ACWY Vaccine Aged Out N o longer eligible based on patient's age to complete this topic Meningococcal B Vacine Aged Out No lo nger eligible based on patient's age to complete this topic Pneumococcal Vaccine: Pediatrics (0 to 5 Years) and At-Risk Patients (6 to 64 Years) Aged Out No longer eligible based on patient's age to complete this topic RSV Immunization Patients Under 20 months Aged Out No longer eligible based on patient's age to complete this topic Varicella Vaccines Aged Out No longer eligible based on patient's age to complete this topic Procedures Procedure Name Priority Date/Time Associated Diagnosis Comments [facility] SCREENING DIGITAL Routine 11/27/2023 3:39 PM EDT Encounter for screening mammogram for malignant neoplasm of breast from Last 3 Months or Most Recently Relevant to Health Maintenance Results * [facility] SCREEN[facility] (11/27/2023 3:39 PM EDT) Anatomical Region Laterality Modality Mammography 11/27/2023 2:33 PM EDT Narrative 11/27/2023 3:39 PM EDT [facility] Diagnostic Imaging Department [address] [place], [place] [id number] Patient: ??TESS HANKINS ?/Age/Sex: 1960 - 63 - F Unit#: ??[id number] ? Location/Status: ??SPDIMAM/REG CLI ? Mnemonic/Ordering Site: ??DIGSC/SPMAM Ordering Physician: ??RAY SHARMA MD [facility] Screening Digital - 11/27/23 - 1515 Report Status:Signed EXAM: [facility] Screening Digital EXAM DATE AND TIME: 11/27/2023 3:16 PM HISTORY: ??Annual screening COMPARISON: ??Multiple exams dating back to 2013 TECHNIQUE: Bilateral digital breast tomosynthesis was performed in the CC and MLO projections. Computer aided detection with [employer] 3D 3.1 was employed. TISSUE DENSITY: b. There are scattered areas of fibroglandular density. FINDINGS: No suspicious masses, grouped microcalcifications, or areas of architectural distortion are seen. The skin and vascularity are unremarkable. IMPRESSION: Stable mammographic appearance of the breasts. ??No evidence of malignancy is seen. A negative mammogram in the presence of a clinically suspicious palpable abnormality does not preclude the possibility of malignancy or alter the indications for biopsy. BI-RADS: ??Category 1: Negative RECOMMENDATION(S): 1: Routine screening mammogram BILATERAL in 1 year. 3341F, 7025F Dictating Physician: ??JOSE ANGEL MERCADO MD Electronically Signed by: ??JOSE ANGEL MERCADO MD Dic Date/Time: ??11/27/23 1537 Sign date/Time: ??11/27/23 1539 Procedure Note Jose Angel Mercado MD - 04/21/2024 [facility] Diagnostic Imaging Department [address] [place] [address] Patient: TESS HANKINS Tala Duckworth/Age/Sex: 1960 - 63 - F Unit#: [id number] [facility]Ordering Site: [facility] Ordering Physician: RAY SHARMA MD [facility] Screening Digital - 11/27/23 - 1515 Report Status:Signed EXAM: [facility] Screening Digital EXAM DATE AND TIME: 11/27/2023 3:16 PM HISTORY: Annual screening COMPARISON: Multiple exams dating back to 2013 TECHNIQUE: Bilateral digital breast tomosynthesis was performed in the CCand MLO projections. Computer aided detection with [employer] 3D 3.1was employed. TISSUE DENSITY: b. There are scattered areas of fibroglandular density. FINDINGS: No suspicious masses, grouped microcalcifications, or areas ofarchitectural distortion are seen. The skin and vascularity are unremarkable. IMPRESSION: Stable mammographic appearance of the breasts. No evidence of malignancyis seen. A negative mammogram in the presence of a clinically suspicious palpable abnormality does not preclude the possibility of malignancy or alter the indications for biopsy. BI-RADS: Category 1: Negative RECOMMENDATION(S): 1: Routine screening mammogram BILATERAL in 1 year. 3341F, 7025F Dictating Physician: JOSE ANGEL MERCADO MD Electronically Signed by: JOSE ANGEL MERCADO MD Dic Date/Time: 11/27/23 1537 Sign date/Time: 11/27/231538 us Ray Sharma MD IMG BI PROCEDURES Final Re sult from Last 3 Months or Most Recently Relevant to Health Maintenance
== END 2024-11-19 14:55 | disposition home or self-care (01) ==
LOC: HO.RHES 14:26
PROVIDERS: PCP Internal Medicine Endocrinology, Diabetes & Metabolism; Visit Provider Internal Medicine Rheumatology
DX: M35.09 Sjogren syndrome with other organ involvement (principal); M89.8X1 Other specified disorders of bone, shoulder
CPT/HCPCS: 99214

== ENCOUNTER 2024-11-20 14:46 | Outpatient (REF) | payer BC, SELFPAY ==
--- NOTE | ~2024-11-20 | XR_ITS ---
CLINICAL HISTORY: M89.8X1 - Other specified disorders of bone, shoulder 2 view left clavicle Comparison: None Findings: Bones intact. No dislocations. No significant loss of joint space or osteophytes. No erosions. No radiopaque foreign body. IMPRESSION: 1. No acute findings This document has been electronically signed by: David Arguelles MD on 11/22/2024 08:27:12
== END 2024-11-20 14:47 | disposition home or self-care (01) ==
LOC: HO.XRAY 14:46
PROVIDERS: PCP Internal Medicine Endocrinology, Diabetes & Metabolism; Visit Provider Internal Medicine Rheumatology
DX: M89.8X1 Other specified disorders of bone, shoulder (principal)
CPT/HCPCS: 73000

== ENCOUNTER → 2024-11-20 14:50 | Outpatient (BNV) | payer BC, SELFPAY | PROVIDERS: PCP Internal Medicine Endocrinology, Diabetes & Metabolism; Visit Provider Specialist | DX: M89.8X1 Other specified disorders of bone, shoulder (principal) | CPT/HCPCS: 73000 ==

== ENCOUNTER 2024-12-24 10:55 | Outpatient (REF) | payer BC, SELFPAY ==
--- OUTSIDE RECORDS SUMMARY | 2024-12-24 13:08 | XMS_ITS | Clinical Summary ---
Author Organization [facility] it Address [address] [place] [address] Care Team Providers Care Assistant Signal Maintainer Name Role Phone Unavailable Primary Care Provider [...] Vaccine ( - season) 2024 Influenza Vaccine (Season Ended) 2025 Breast Cancer Screening 11/26/2025 11/27/19 24, 11/24/2022, 11/22/2021, Additional history exists RSV Immunization Adult Patients (1 - 1-dose 75+ series) 2035 HIB [...] age to complete this topic Meningococcal B Vaccine Aged Out No l onger eligible based on patient's age to complete [...] Procedure Name Priority Date/Time Associated Diagnosis Comments [facility] SCREEN[facility] Routine 11/27/2023 3:39 PM EDT Encounter for screening mammogram for malignant neoplasm of breast from Last 3 Months or Most Recently Relevant to Health Maintenance Results * [facility] SCRE[facility] (11/27/2023 3:39 PM EDT) Anatomical Region Laterality Modality Mammography 11/27/2023 2:33 PM EDT Narrative 11/27/2023 3:39 PM EDT [facility] Diagnostic Imaging Department [address] [place], [place] [id number] Patient: ??TESS HANKINS ?/Age/Sex: 1960 - 63 - F Unit#: ??[id number] ? Location/Status: ??SPDIMAM/REG CLI ? Mnemonic/Ordering Site: ??DIGSC/SPMAM Ordering Physician: ??RAY SHARMA MD [facility] Screening Digital - 11/27/23 - 1554 Report Status:Signed EXAM: [facility] Screening Digital EXAM DATE AND TIME: 11/27/2023 3:16 PM HISTORY: ??Annual screening COMPARISON: ??Multiple exams dating back to 2013 TECHNIQUE: Bilateral digital breast tomosynthesis was performed in the CC and MLO projections. Computer aided detection with [employer] 3D 3.1 was employed. TISSUE DENSITY: b. [...] Note Jose Angel Mercado MD - 04/21/2024 [facility] Diagnostic Imaging Department [address] [place] [address] Patient: TESS HANKINS Tala Duckworth/Age/Sex: 1960 - 63 - F Unit#: [id number] Location/Status: SPDIMAM/REG CLI Mnemonic/Ordering Site: DIGSC/SPMAM Ordering Physician: RAY SHARMA MD [facility] Screening Digital - 11/27/23 - 1515 Report Status:Signed EXAM: [facility] Screening Digital EXAM DATE AND TIME: 11/27/2023 3:16 PM HISTORY: Annual screening COMPARISON: Multiple exams dating back to 2013 TECHNIQUE: Bilateral digital breast tomosynthesis was performed in the CCand MLO projections. Computer aided detection with [employer] 3D 3.1was employed. TISSUE DENSITY: b. There [...] MD Dic Date/Time: 11/27/23 1537 Sign date/Time: 11/27/23 1539 us Ray Sharma MD IMG BI PROCEDURES Final Re sult from Last 3 Months or Most Recently Relevant to Health Maintenance
--- OUTSIDE RECORDS SUMMARY | 2024-12-24 13:08 | XMS_ITS ---
Continuity of Care Document (CCD) Created on: December 24, 2024 Jameeolvin Tess E External Reference #: [id number] : [id number] Sex: Female Author Organization [facility] [address] [facility] [address] [place] [address] Phone [phone] Care Team Providers Care Environmental Protection Specialist Name Role Phone Arabella Forde M.D. Care Team Informati on Quality Management Nurse [phone] Problems Active Problems Provider Date Morphea Arabella [...] Qnty Indications Order ing Provider Date Vitamin [id number] (5000 Ut) Capsules 3 by mouth every week Arabella Forde M.D. 10/27/2022 Levothyroxine [id number] Tablets Take 1 Tablet Daily Except 1 Tab Sundays 90tabs Arabella Forde M.D. 07/29/2022 Hydroxychloroquine Jdwktdm590qn Tablets 1 bid Enrrique Knight, Xuhyoburdf31km Capsules DR 1 by mouth every day prn 90caps Arabella Forde M.D. Oohqtbstf519zg Tablets 1 by mouth every day Arabella Forde M.D. Calcium 600 High Bjjzepe345od Tablets Take 1 by mouth qd Unknown Vitamin B ComplexCapsules 1 by mouth every day Arabella Forde M.D. Liegsozapwg31nq Tablets Take 1 Tablet Daily Kishore Knight, History Medications Sulfamethoxazole/Trimethopri m [id number] Tablets take 1 tablet by mouth twice [...] 4.8-5.6 2 Urinalysis, Complete 05/30/2024 [facility] Specific [place] 1.014 1.005-1.03 0 3 pH 5.5 5.0-7.5 [...] See Comment: 6 Comprehensive Metabolic Panl 11/01/2023 [facility] Glucose 88 mg/dL (70-99) BUN [...] 88 ML/MIN/1.7 3M2 7 Lipid Panel 11/01/2023 [facility] Cholesterol, Total 171 mg/dL (<200) Triglyceride 78 mg/dL (<150) HDL Chol 75 mg/dL (>39) LDL Cholesterol, Calculated 80 mg/dL (0-130) Non HDL Cholesterol (Calc) 96 mg/dL (<160) TSH With Reflex To FT4 11/01/2023 [facility] TSH With Reflex To FT4 2.88 uIU/mL (0.4-4.2) 25Oh Vitamin D 11/01/2023 [facility] 25Oh Vitamin D 44.8 NG/ML (20-50) N-Telopeptide Cross Links, Urine 06/16/2023 [facility] Cross Linked N-Telopeptides 175 8 Creat, Urine 111.0 9 N-Telopeptide/C reat Ratio 18 10 NTX Interpretaion Comment 11 TSH With Reflex To FT4 04/25/2023 [facility] TSH With Reflex To FT4 3.81 uIU/mL (0.4-4.2) Comprehensive Metabolic Panl 10/25/2022 [facility] Glucose 95 mg/dL (70-99) BUN [...] 12 TSH With Reflex To FT4 10/25/2022 [facility] TSH With Reflex To FT4 2.73 uIU/mL (0.4-4.2) Vitamin B12 10/25/2022 [facility] Vitamin B12 2997 pg/mL High (232-1245) 25Oh Vitamin D 10/25/2022 [facility] 25Oh Vitamin D 57.1 NG/ML High (20-50) Hemoglobin A1c 04/20/2022 [facility] Hemoglobin A1c 5.1 % (4.0-5.6) 13 TSH With Reflex To FT4 04/20/2022 [facility] TSH With Reflex To FT4 2.75 uIU/mL (0.4-4.2) Glucose 04/20/2022 [facility] Glucose 90 mg/dL (70-99) Urinalysis W/Reflex Culture 04/17/2022 [facility] Appear/Color LIGHT YELLOW 14 SP. [place] 1.011 (1.002-1.0 30) Urine PH 5.5 (5.0-8.0) [...] INDICATE <SEE NOTE> 15 Culture Urine 04/17/2022 [facility] Specimen Description URINE Special Requests NONE Reflexed fr <SEE NOTE> 16 Culture >100,000 COL/ML <SEE NOTE> Abnormal 17 Report Status FINAL 04/20/2022 18 1 Vitamin D deficiency has been defined by the [place] [employer] and an Endocrine Society practice guideline as a level of serum 25-OH vitamin D less than 20 ng/mL (1,2). The Endocrine Society went on to further define vitamin D insufficiency as a level between 21 and 29 ng/mL (2). 1. IOM ([place] [employer]). 2010. Dietary reference intakes for [...] Estab. Unit: nmol BCE [facility], [address] [place] [address] 9 Reference range: Not Estab. Unit: mg/dL Test performed by [facility], [address] [place] [address] 10 Reference range: 0 t o 89 [...] value is <or EQ 38 nM BCE/mM PULLEY MORTISER OPERATOR, or NTx has decreased >or EQ 30% [...] J Bone Min Res.11(1):M757,1996 Test performed at [address] [address] 12 Creatinine based est imated glomerular filtration (eGFR) in adults is calculated using the National Kidney Foundation recommended 2020 CKD-EPI equation. Estimates GFR from serum creatinine, age and sex. 13 MONITORING: In known diabetic patients, hemoglobin A1c targets should be discussed with health care provider. DIAGNOSTIC USE: The [place] Diabetes Association (ADA) and the World Health [...] 15 CULTURE INDICATED 16 NONE Reflexed from 371453 17 >100,000 COL/ML ESCH ERICHIA COLI This [...] SUSCEPTIBLE Procedures Date Code Description Status 10/31/2024 33099 Collection Of Venous Blood B y Venipuncture Completed 11/01/2023 41793 Collection Of Venous Blood B y Venipuncture Completed 04/25/2023 37165 Collection Of Venous Blood B y Venipuncture Completed 10/25/2022 44964 Collection Of Venous Blood B y Venipuncture Completed 04/20/2022 77003 Collection Of Venous Blood B y Venipuncture [...] Status Appt Kishore Leo, Closed 20[address] [place] [address] [phone] Gabby Blue Closed [address] [address] [phone] Puja Paul MD Closed [address] [address] [phone] Kishore Knight, Closed [address] [place] [address] [phone] Daisy Jo Closed [address] [place] [address] [phone] Kishore Knight, Closed [address] [place] [address] [phone] Iliana Blue Closed Physical Therapy [address] [place] [address] [phone] Puja Paul MD Closed [address] [address] [phone] Kishore Knight, Closed [address] [place] [address] [phone]
[2024-12-24 18:12] LABS: Alanine Aminotransferase 45 U/L (0-31); Aspartate Amino Transferase 38 U/L (5-31)
[2024-12-24 18:16] LABS: Alanine Aminotransferase 46 U/L (0-31); Albumin Level 4.2 g/dL (3.5-5.0); Alkaline Phosphatase 62 U/L (39-117); Aspartate Amino Transferase 37 U/L (5-31); Bilirubin Direct 0.1 mg/dL (0.0-0.5); Bilirubin Total 0.3 mg/dL (0.0-1.0); Total Protein 7.3 g/dL (6.5-8.0)
== END 2024-12-24 10:56 | disposition home or self-care (01) ==
LOC: HO.HKASLDS 10:55
PROVIDERS: Visit Provider Internal Medicine Rheumatology
DX: R74.01 Elevation of levels of liver transaminase levels (principal); Z79.899 Other long term (current) drug therapy
CPT/HCPCS: 36415; 80076; 84450; 84460

== ENCOUNTER 2025-02-19 12:52 | Outpatient (AMB) | payer BC, SELFPAY ==
--- NOTE | 2025-02-19 12:55 | A.OFFVIS_ITS ---
Vital Signs 02/19/25 13:02 Height 5 ft 3 in Weight 185 lb BMI 32.8 BP 115/70 Blood Pressure Location Rt brachial Position Sitting Pulse 70 Pulse Oximetry (%) 98 Oxygen Delivery Method Room Air Intake Visit Reasons: 3 Months Intake Note: Patient presents for 3 months follow up. Allergies diphenhydramine (From Benadryl Allergy) Allergy (Mild, Verified 02/19/25 12:59) restleless legs HPI HPI 3 Months: Details: MS hands all day. No recent infections. She has noticed decreased swelling in her lymph nodes in her neck since being on leflunomide. Recently she is experiencing temporal headache. Eyelid is swollen since December. She is on an antibiotic for possible tooth infection around her crown, which has improved per her dentist's evaluation. Retired 2 days ago. PFSH Family History (Updated 02/19/25 @ 13:01 by NOEMY Christie) Mother Hypertension Diverticulitis Social History (Updated 02/19/25 @ 13:02 by NOEMY Christie) Household Members: Spouse Housing: House Alcohol intake: current Comment: Ocassionally Patient Tobacco Use Status: Never used Tobacco Physical Exam Vital Signs: Last Vital Signs Pulse 70 02/19/25 13:02 BP 115/70 02/19/25 13:02 Pulse Ox 98 02/19/25 13:02 Oxygen Delivery Method Room Air 02/19/25 13:02 BMI result Body Mass Index 32.8 Const Other: General: Comfortable CVS: RRR Respiratory: clear to auscultation bilaterally. Good respiratory effort Skin: No lesions seen MSK: No joint pain. No synovitis. Normal range of motion of upper extremity and lower extremity. Lymph nodes: Left submandibular lymph node palpated without change Assessment & Plan Assessment & Plan (1) Sjogren syndrome: Comment: With inflammatory arthritis better controlled since being on leflunomide. Leflunomide dose was reduced due to transaminitis. Rheumatology history: She has Sjogren syndrome biopsy-proven with gland focus score 4. JANEY negative. SSA antibody positive. Inflammatory arthritis affecting hands. HCQ 03/2021-, leflunomide 03/2024- Code(s): M35.00 - Sjogren syndrome, unspecified Category: Medical Qualifiers: Sjogren organ or system involvement: other organ involvement Qualified Code(s): M35.09 - Sjogren syndrome with other organ involvement Plan: Continue hydroxychloroquine 400 mg daily. Eye exam 10/2023 OCT okay. Visual field not reliable. She had a repeat visual field tests in December. I am requesting clinic note/letter for hydroxychloroquine surveillance Continue leflunomide 20 mg daily Labs for disease monitoring and drug monitoring on high-risk medication ordered. If LFTs remain elevated, I will discontinue leflunomide Dry eyes: Bung Dropper recommended she try OTC artificial tears. Return to clinic in 3 months (2) Pain of left clavicle: Comment: She has four-month history of localized pain to proximal left clavicle without pain of unclear etiology. X-ray left clavicle was unremarkable. Code(s): M89.8X1 - Other specified disorders of bone, shoulder Category: Medical Plan: Monitor clinically Orders: Orders Complete Blood Count Man Dif Today M35.09 - Sjogren syndrome with other organ involvement, R74.01 - Elevation of levels of liver transaminase levels, Z79.899 - Other senior living (current) drug therapy Alanine Aminotransferase Today M35.09 - Sjogren syndrome with other organ involvement, R74.01 - Elevation of levels of liver transaminase levels, Z79.899 - Other senior living (current) drug therapy Erythrocyte Sedimentation Rate Today M35.09 - Sjogren syndrome with other organ involvement, R74.01 - Elevation of levels of liver transaminase levels, Z79.899 - Other senior living (current) drug therapy Aspartate Amino Transferase Today M35.09 - Sjogren syndrome with other organ involvement, R74.01 - Elevation of levels of liver transaminase levels, Z79.899 - Other senior living (current) drug therapy Creatinine Today M35.09 - Sjogren syndrome with other organ involvement, R74.01 - Elevation of levels of liver transaminase levels, Z79.899 - Other long wall shear operator (current) drug therapy C Reactive Protein Today M35.09 - Sjogren syndrome with other organ involvement, R74.01 - Elevation of levels of liver transaminase levels, Z79.899 - Other long wall shear operator (current) drug therapy Coding Level of Care Code Est Pt Level 4 (54091) Complex EM visit Add On G2211 Diagnoses Sjogren's syndrome with other organ involvement M35.09 Sjogren organ or system involvement: other organ involvement Pain of left clavicle M89.8X1
[2025-02-19 13:02] VITALS: BP 115/70; PULSE 70; O2SAT 98; BMI 32.8
--- OUTSIDE RECORDS SUMMARY | 2025-02-19 13:59 | XMS_ITS | Patient Health Record ---
Author Organization [facility] Tito Burgos Address [address] [place] [address] Care Team Providers Care Gravity Prospecting Supervisor Name Role Phone Maurisio DAVEY, Arabella Primary Care Provider Unavailable Catrina Quintanilla Unavailable [phone] Allergies Allergen (clinical drug ingredient) Drug/Non Drug Allergy documented on EMR Reaction Allergy Type Onset Date Status diphenhydramine Benadryl restless legs Drug Allergy Active Reason For Referral Diagnosis 1 Pain in unspecified foot (M79.673) Referring Provider First Name Arabella Referring Provider Last Name Charly moe [facility]erred Provider Catrina Quintanilla Referred Address [address] [place], [place],[address],[place] Referred Provider Specialty Podiatry Referral Priority Routine Medications Medication SIG (Take, Route, Frequency, Duration) Notes Start Date End Date Status Synthroid 112 MCG 1 tablet in the morning on an empty stomach Orally Once a day Active Vitamin D-Vitamin K Active Hydroxychloroquine Sulfate 4 00 MG as directed Orally Active Magnesium Glycinate Active Systane Active Flonase Active Famotidine 20 MG 1 tablet at bedtime as needed Orally Once a day Active B Complex Active Calcium Citrate 250 MG 1 tablet Orally O nce a day Active Social History Tobacco Use: Social History Observation Description Date Details (start date - stop date) Never Smoker NA - NA Tobacco use other than smoking: Question Answer Notes Are you an other tobacco user? No Tobacco Control (Standard) Question Answer Notes Tobacco use: Nonsmoker Additional Findings: Tobacco non-user Current no nsmoker AUDIT-C (Standard) Question Answer Notes Did you have a drink containing alcohol in the p ast year? 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.22 Assessments Encounter Date Diagnosis (ICD Code) Assessment Notes Treatment Notes Treatment Clinical Notes Section Notes 02/03/2025 Pain in left foot (ICD-10 - M79.672) 02/03/2025 Plantar fibromatosis (ICD-10 - M72.2) 02/03/2025 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 (ICD-10 - D21.22) Plan Of Treatment No Information Insurance Providers Payer Name Payer Address Payer Phone Subscriber Number Group Number Insured Name Patient Relationship to Insured Coverage Start Date Coverage End Date [facility] [address] [place] [address] [phone] [id number] Tess Bennett Self - patient is the insured Medical (General) History Medical History History ICD Code osteoarthritis Back,Hip,and Knee pain Broken bones basal cell carcinoma covid-19 Diverticulosis Fibromyalgia Gall bladder sludge Osteoporosis Reflux ( GERD) Scleroderma Sjogren syndrome thyroid Hashimotos thyroiditis Warts Varicose veins pneumonia w/ sepsis Dupytrens contracture Surgical History Surgery Date(Month/Year) wisdom teeth extraction 1978 1988 vein stripping and ligation 2003
== END 2025-02-19 13:44 | disposition home or self-care (01) ==
PROVIDERS: PCP Internal Medicine Endocrinology, Diabetes & Metabolism; Visit Provider Internal Medicine Rheumatology
DX: M35.09 Sjogren syndrome with other organ involvement (principal); M89.8X1 Other specified disorders of bone, shoulder
CPT/HCPCS: 99214

== ENCOUNTER 2025-02-19 12:52 | Outpatient (REF) | payer BC, SELFPAY ==
[2025-02-19 17:41] LABS: Baso%MD 0.9 %; Eos%MD 4.2 %; Hematocrit 42.1 % (37.0-47.0); Hemoglobin 14.2 g/dl (12.0-16.0); IG%MD 0.3 %; Lymph%MD 20.7 %; Mean Corpuscular HGB Conc 33.7 g/dl (31.0-35.0); Mean Corpuscular Hemoglobin 34.9 pg (27.0-33.0); Mean Corpuscular Volume 103.4 fL (80.0-98.0); Mean Platelet Volume 11.3 fL (9.4-12.3); Mono%MD 10.9 %; Platelet Count 202 X10*3/uL (160-400); Red Blood Count 4.07 X10*6/uL (4.20-5.50); Red Cell Distribution Width 11.8 % (11.0-16.0); White Blood Count 6.9 X10*3/uL (4.8-10.8)
[2025-02-19 17:53] LABS: Alanine Aminotransferase 24 U/L (0-31); Aspartate Amino Transferase 24 U/L (5-31); C Reactive Protein 0.43 mg/dL (< or = 0.50); Estimated Glomerular Filt Rate > 60
[2025-02-19 18:29] LABS: Erythrocyte Sedimentation Rate 13 MM/HR (0-20)
[2025-02-19 22:15] LABS: Atypical Lymph Absolute Manual 0.1 x10*3/uL; Atypical Lymphs Percent Manual 1 % (0-6); Band Neutrophils Percent 0 % (3-5); Eosinophils Absolute Manual 0.1 X10*3/uL (0.0-0.4); Eosinophils Percent Manual 2 % (0-4); Lymphocytes Absolute Manual 1.7 X10*3/uL (1.2-4.9); Lymphocytes Percent Manual 24 % (20-40); Monocytes Absolute Manual 0.6 X10*3/uL (0.1-1.2); Monocytes Percent Manual 8 % (2-11); Neutrophils Absolute Manual 4.5 X10*3/uL (2.0-8.3); Neutrophils Percent Manual 65 % (45-73); Platelet Estimate NORMAL (NORMAL); Platelet Morphology Comment NORMAL; RBC Morphology NORMAL
== END 2025-02-19 12:53 | disposition home or self-care (01) ==
LOC: HO.HKASLDS 12:52
PROVIDERS: PCP Internal Medicine Endocrinology, Diabetes & Metabolism; Visit Provider Internal Medicine Rheumatology
DX: R74.01 Elevation of levels of liver transaminase levels (principal); M35.09 Sjogren syndrome with other organ involvement; Z79.899 Other long term (current) drug therapy
CPT/HCPCS: 36415; 82565; 84450; 84460; 85007; 85027; 85652; 86140

== ENCOUNTER 2025-05-21 13:20 | Outpatient (AMB) | payer OTHER, SELFPAY ==
[2025-05-21 13:33] VITALS: BP 130/80; PULSE 77; O2SAT 99; BMI 34.0
--- NOTE | 2025-05-21 13:33 | A.OFFVIS_ITS ---
Vital Signs 05/21/25 13:33 Height 5 ft 3 in Weight 191 lb 12.835 oz BMI 34.0 BP 130/80 Blood Pressure Location Lt brachial Position Sitting Pulse 77 Pulse Source Pulse Oximeter Pulse Oximetry (%) 99 Oxygen Delivery Method Room Air Intake Visit Reasons: 3 months Intake Note: Patient presents for 3 months follow up for sjorgens. Accompanied by: Self / Same As Patient Allergies diphenhydramine (From Benadryl Allergy) Allergy (Mild, Verified 05/21/25 13:35) restleless legs HPI HPI 3 months: Details: She held leflunomide due to tooth infection while on abx. SHe had increase joint pain and stiffness. Resumed leflunomide 3 weeks ago. While off of leflunomide she had increased joint pain and stiffness, which is now improving since she is back on it. No new joint swelling. Dx lichen sclerosis left leg recently by Dermatology. PFSH Medical History Lichen sclerosus Family History Mother Hypertension Diverticulitis Social History Household Members: Spouse Housing: House Alcohol intake: current Comment: Ocassionally Patient Tobacco Use Status: Never used Tobacco Physical Exam Vital Signs: Last Vital Signs Pulse 77 05/21/25 13:33 BP 130/80 05/21/25 13:33 Pulse Ox 99 05/21/25 13:33 Oxygen Delivery Method Room Air 05/21/25 13:33 BMI result Body Mass Index 34.0 Const Other: General: Comfortable CVS: RRR Respiratory: clear to auscultation bilaterally. Good respiratory effort Skin: No lesions seen MSK: No joint pain. Synovitis of left 2nd and 3rd MCP. Normal range of motion of upper extremity and lower extremity. Assessment & Plan Assessment & Plan (1) Sjogren syndrome: Comment: With inflammatory arthritis. She has recurrences synovitis of left 2nd and 3rd MCPs since holding leflunomide after tooth infection. Rheumatology history: She has Sjogren syndrome biopsy-proven with gland focus score 4. JANEY negative. SSA antibody positive. Inflammatory arthritis affecting hands. HCQ 03/2021-, leflunomide 03/2024- dose reduced to 10 mg q.d. due to transaminitis. Code(s): M35.00 - Sjogren syndrome, unspecified Category: Medical Qualifiers: Sjogren organ or system involvement: other organ involvement Qualified Code(s): M35.09 - Sjogren syndrome with other organ involvement Plan: Continue hydroxychloroquine 400 mg daily. Eye exam 10/2023 OCT okay. Visual field 12/30/2024 ok. Continue leflunomide 10 mg daily Labs for disease monitoring and drug monitoring on high-risk medication ordered Dry eyes: Flight Radio Operator recommended she try OTC artificial tears. Return to clinic in 3 months (2) Osteoarthritis of right knee: Comment: Intermittent right knee clicking and pain is due to osteoarthritis. X-ray from 2022 reveals bilateral knee osteoarthritis ([facility] records). We discussed conservative management. Code(s): M17.11 - Unilateral primary osteoarthritis, right knee Category: Medical Plan: Encouraged weight loss She declined PT at this time but will consider it if symptoms become more frequent Return to clinic in 3 months Orders: Orders Aspartate Amino Transferase Today Z79.60 - penitentiary (current) use of unspecified immunomodulators and immunosuppressants Creatinine Today Z79.60 - penitentiary (current) use of unspecified immunomodulators and immunosuppressants Alanine Aminotransferase Today Z79.60 - penitentiary (current) use of unspecified immunomodulators and immunosuppressants Erythrocyte Sedimentation Rate Today Z79.60 - penitentiary (current) use of unspecified immunomodulators and immunosuppressants C Reactive Protein Today Z79.60 - penitentiary (current) use of unspecified immunomodulators and immunosuppressants Complete Blood Count Auto Diff Today Z79.60 - ocean transportation intermediary (current) use of unspecified immunomodulators and immunosuppressants Medications: Refilled leflunomide 10 mg PO DAILY 90 tabs 0RF 90 days M35.09 - Sjogren syndrome with other organ involvement Coding Level of Care Code Est Pt Level 4 (48086) Complex EM visit Add On G2211 Diagnoses Sjogren's syndrome with other organ involvement M35.09 Sjogren organ or system involvement: other organ involvement Osteoarthritis of right knee M17.11
--- OUTSIDE RECORDS SUMMARY | 2025-05-21 15:21 | XMS_ITS | Clinical Summary ---
Author Organization [facility] Address [address] [place] [phone] Phone Care Team Providers Care Fence Installer Name Role Phone Grace Wu MD Primary Care Provid er Encounters Date Type Department Care Team Description 04/09/2025 2:42 PM EDT - 04/09/2025 11:59 PM EDT Hospital Encounter [facility] Ultrasound [address] [place] [phone] Breast asymmetry Discharge Disposition: Home or Self Care 04/09/2025 1:49 PM EDT - 04/09/2025 11:59 PM EDT [facility]counter [facility] at [address] [phone] Breast asymmetry Discharge Disposition: Home or Self Care 03/18/2025 10:00 AM EDT - 03/18/2025 11:59 PM EDT Hospital Encounter [facility] at [address] [phone] Encounter for screening mammogram for breast cancer Discharge Disposition: Home or Self Care from Last 3 Months Social History Tobacco Use Types Packs/Day Years Used Date Smoking Tobacco: Never Assessed Comments No Sex and Gender Information Value Date Recorded Sex Assigned at Female 03/19/2025 11:58 AM EDT Legal Sex Female 11:38 AM EST Gender Identity Female 03/19/2025 11:58 AM EDT Sexual Orientation Not on file Obstetrics History Para Term AB IAB SAB Ectopic Multiple Livin g Live Births 4 Last Filed Vital Signs Vital Sign Reading Time Taken Comments Blood Pressure - - Pulse - - Temperature - - Respiratory Rate - - Oxygen Saturation - - Inhaled Oxygen Concentration - - Weight 84.4 kg (186 lb) 03/18/2025 10:17 AM EDT Height 160 cm (5' 3 ) 03/18/2025 10:17 AM EDT Body Mass Index 32.95 03/18/2025 10:17 AM EDT Plan of Treatment Health Maintenance Due Date Last Done Comments DTaP,Tdap,and Td Vaccines (1 - Tdap) 1979 Hepatitis A Vaccines (1 of 2 - Risk 2-dose series) 1979 Cervical Cancer Screening: Pap Smear 1981 Pneumococcal Vaccine: 50+ Years (1 of 1 - PCV) 2010 Zoster Vaccines (1 of 2) 2010 Hepatitis B Vaccines (1 of 3 - Risk 3-dose series) 2020 RSV Immunization Adult Patients (1 - Risk 60-74 years 1-dose series) 2020 Cholesterol Screening (Lipid Panel) 08/01/2022 Colorectal Cancer Screening: Colonoscopy 08/01/2022 HIV Screening 08/01/2022 Hepatitis C Screening 08/01/2022 Medicare Annual Wellness Visit 08/01/2022 Social Influencers of Health Screening 08/01/2022 Depression Screening 09/03/2024 COVID-19 Vaccine ( season) 2025 08/01/2022, 07/01/2021, 10/07/2020, Additional history exists Influenza Vaccine (#1) 2025 3, 06/12/2022, 05/31/2021, Additional history exists Breast Cancer Screening 04/09/2027 04/09/20 25, 03/18/2025, 11/27/2023, Additional history exists Osteoporosis Screening (Bone Density Screening) 05/23/2033 05/23/2023, 05/05/2021, 07/31/2018 HIB Vaccines Aged Out No longer eligi [...] Procedure Name Priority Date/Time Associated Diagnosis Comments MG MAMMO DIGITAL DIAGNOSTIC W JUAN LEFT Routine 04/09/2025 3:15 PM EDT Breast asymmetry US BREAST LIMITED LEFT Routine 04/09/2025 3:04 PM EDT Breast asymmetry MG MAMMO DIGITAL SCREENING W JUAN BILAT Routine 03/18/2025 10:21 AM EDT Encounter for screening mammogram for breast cancer [facility] DEXA AXIAL SKELETON Routine 05/23/2023 7:43 AM EDT Encounter for screening for osteoporosis from Last 3 Months or Most Recently Relevant to Health Maintenance Results * MG Mammo Digital Diagnostic w Juan Left (04/09/2025 3:15 PM EDT) Anatomical Region Laterality Modality Breast Left Mammography 04/09/2025 3:46 PM EDT Impressions 04/09/2025 3:50 PM EDT No persistent suspicious abnormality. The area of original mammographic concern becomes much less prominent with diagnostic assessment. Recommend diagnostic left mammography in 6 months to assess for interval changes ASSESSMENT: BI-RADS 3: PROBABLY BENIGN RECOMMENDATION(S): 1: Follow-up diagnostic mammogram LEFT in 6 months. [facility]amm[facility] location[facility] at [address], [id number] -------- FINAL REPORT -------- Dictated By: Stanton Ayaal Dictated Date: 04/09/2025 15:46 ET Assigned Physician: Stanton Ayala Reviewed and Electronically Signed By: Stanton Ayala Signed Date: 04/09/2025 15:50 ET Workstation ID: [id number] Transcribed By: Self Edit Transcribed Date: 04/09/2025 15:46 ET Narrative 04/09/2025 3:50 PM EDT EXAM: DIAGNOSTIC MAMMOGRAPHY, UNILATERAL LEFT ULTRASOUND: DIAGNOSTIC ULTRASOUND, UNILATERAL LEFT HISTORY: Abnormal screening mammogram. Focal asymmetry 2 o'clock position 6 cm from left nipple COMPARISON: Left mammography 03/18/25 TECHNIQUE: Tomosynthesis of the left breast using full field technique in the mediolateral projection. ADDITIONAL IMAGING: Tomosynthesis of the left breast and multiple projections using spot compression. High-frequency linear transducer ultrasound of the left breast targeted to the area(s) of clinical concern. Computer aided detection was not utilized. TISSUE DENSITY: There are scattered areas of fibroglandular density. (BI-RADS category B) FINDINGS: MAMMOGRAPHY: LEFT BREAST: The asymmetry in the 2 o'clock position left breast becomes much less prominent. There is no discrete targetable abnormality. No new suspicious left breast finding ULTRASOUND: LEFT BREAST The 2 o'clock region was examined with a high-frequency linear transducer. There is no suspicious mass. No suspicious area of altered echotexture. Procedure Note Stanton Ayala MD - 04/09/2025 EXAM: DIAGNOSTIC MAMMOGRAPHY, UNILATERAL LEFT ULTRASOUND: DIAGNOSTIC ULTRASOUND, UNILATERAL LEFT HISTORY: Abnormal screening mammogram. Focal asymmetry 2 o'clockposition 6 cm from left nipple COMPARISON: Left mammography 03/18/25 TECHNIQUE: Tomosynthesis of the left breast using full field technique inthe mediolateral projection. ADDITIONAL IMAGING: Tomosynthesis of the left breast and multipleprojections using spot compression. High-frequency linear transducer ultrasound of the left breast targeted tothe area(s) of clinical concern. Computer aided detection was not utilized. TISSUE DENSITY: There are scattered areas of fibroglandular density.(BI-RADS category B) FINDINGS: MAMMOGRAPHY: LEFT BREAST: The asymmetry in the 2 o'clock position left breast becomes much lessprominent. There is no discrete targetable abnormality. No new suspicious left breast finding ULTRASOUND: LEFT BREAST The 2 o'clock region was examined with a high-frequency lineartransducer. There is no suspicious mass. No suspicious area of altered echotexture. IMPRESSION: No persistent suspicious abnormality. The area of original mammographic concern becomes much less prominent withdiagnostic assessment. Recommend diagnostic left mammography in 6 months to assess for intervalchanges ASSESSMENT: BI-RADS 3: PROBABLY BENIGN RECOMMENDATION(S): 1: Follow-up diagnostic mammogram LEFT in 6 months. [facility]amm[facility] location[facility] at [address], [address] -------- FINAL REPORT -------- Dictated By: Stanton Ayala Dictated Date: 04/09/2025 15:46 ET Assigned Physician: Stanton Ayala Reviewed and Electronically Signed By: Stanton Ayala Signed Date: 04/09/2025 15:50 ET Workstation ID: [id number] Transcribed By: Self Edit Transcribed Date: 04/09/2025 15:46 ET us Grace Wu MD IMG BI PROCEDURES Fi nal Result * US Breast Limited Left (04/09/2025 3:04 PM EDT) Anatomical Region Laterality Modality Breast Left Ultrasound 04/09/2025 3:46 PM EDT Impressions 04/09/2025 3:50 PM EDT No persistent suspicious abnormality. The area of original mammographic concern becomes much less prominent with diagnostic assessment. Recommend diagnostic left mammography in 6 months to assess for interval changes ASSESSMENT: BI-RADS 3: PROBABLY BENIGN RECOMMENDATION(S): 1: Follow-up diagnostic mammogram LEFT in 6 months. Mammography location: [facility] at [address], [address] -------- FINAL REPORT -------- Dictated By: Stanton Ayala Dictated Date: 04/09/2025 15:46 ET Assigned Physician: Stanton Ayala Reviewed and Electronically Signed By: Stanton Ayala Signed Date: 04/09/2025 15:50 ET Workstation ID: [id number] Transcribed By: Self Edit Transcribed Date: 04/09/2025 15:46 ET Narrative 04/09/2025 3:50 PM EDT EXAM: DIAGNOSTIC MAMMOGRAPHY, UNILATERAL LEFT ULTRASOUND: DIAGNOSTIC ULTRASOUND, UNILATERAL LEFT HISTORY: Abnormal screening mammogram. Focal asymmetry 2 o'clock position 6 cm from left nipple COMPARISON: Left mammography 03/18/25 TECHNIQUE: Tomosynthesis of the left breast using full field technique in the mediolateral projection. ADDITIONAL IMAGING: Tomosynthesis of the left breast and multiple projections using spot compression. High-frequency linear transducer ultrasound of the left breast targeted to the area(s) of clinical concern. Computer aided detection was not utilized. TISSUE DENSITY: There are scattered areas of fibroglandular density. (BI-RADS category B) FINDINGS: MAMMOGRAPHY: LEFT BREAST: The asymmetry in the 2 o'clock position left breast becomes much less prominent. There is no discrete targetable abnormality. No new suspicious left breast finding ULTRASOUND: LEFT BREAST The 2 o'clock region was examined with a high-frequency linear transducer. There is no suspicious mass. No suspicious area of altered echotexture. Procedure Note Stanton Ayala MD - 04/09/2025 EXAM: DIAGNOSTIC MAMMOGRAPHY, UNILATERAL LEFT ULTRASOUND: DIAGNOSTIC ULTRASOUND, UNILATERAL LEFT HISTORY: Abnormal screening mammogram. Focal asymmetry 2 o'clockposition 6 cm from left nipple COMPARISON: Left mammography 03/18/25 TECHNIQUE: Tomosynthesis of the left breast using full field technique inthe mediolateral projection. ADDITIONAL IMAGING: Tomosynthesis of the left breast and multipleprojections using spot compression. High-frequency linear transducer ultrasound of the left breast targeted tothe area(s) of clinical concern. Computer aided detection was not utilized. TISSUE DENSITY: There are scattered areas of fibroglandular density.(BI-RADS category B) FINDINGS: MAMMOGRAPHY: LEFT BREAST: The asymmetry in the 2 o'clock position left breast becomes much lessprominent. There is no discrete targetable abnormality. No new suspicious left breast finding ULTRASOUND: LEFT BREAST The 2 o'clock region was examined with a high-frequency lineartransducer. There is no suspicious mass. No suspicious area of altered echotexture. IMPRESSION: No persistent suspicious abnormality. The area of original mammographic concern becomes much less prominent withdiagnostic assessment. Recommend diagnostic left mammography in 6 months to assess for intervalchanges ASSESSMENT: BI-RADS 3: PROBABLY BENIGN RECOMMENDATION(S): 1: Follow-up diagnostic mammogram LEFT in 6 months. [facility]amm[facility] location: [facility] at [address], [address] -------- FINAL REPORT -------- Dictated By: Stanton Ayala Dictated Date: 04/09/2025 15:46 ET Assigned Physician: Stanton Ayala Reviewed and Electronically Signed By: Stanton Ayala Signed Date: 04/09/2025 15:50 ET Workstation ID: [id number] Transcribed By: Self Edit Transcribed Date: 04/09/2025 15:46 ET us Grace Wu MD IMG US PROCEDURES Fi nal Result * (ABNORMAL) MG Mammo Digital Screening w Juan bilat (03/18/2025 10:21 AM EDT) Anatomical Region Laterality Modality Breast Bilateral Mammography 03/18/2025 5:12 PM EDT Impressions 03/18/2025 5:18 PM EDT Incompletely characterized focal asymmetry 2 o'clock position 6 cm from left nipple. Recommend diagnostic left mammography including Tomosynthesis with spot compression in multiple projections. Recommend full field mediolateral view of the left breast using Tomosynthesis Recommend left breast ultrasound if warranted ASSESSMENT: BI-RADS 0: INCOMPLETE - need additional imaging evaluation and/or prior mammograms for comparison RECOMMENDATION(S): 1: Special mammographic view(s) needed LEFT with left breast ultrasound if warranted [facility]amm[facility] location: [facility] at [address], [address] -------- FINAL REPORT -------- Dictated By: Stanton Ayala Dictated Date: 03/18/2025 17:12 ET Assigned Physician: Stanton Ayala Reviewed and Electronically Signed By: Stanton Ayala Signed Date: 03/18/2025 17:18 ET Workstation ID: [id number] Transcribed By: Self Edit Transcribed Date: 03/18/2025 17:12 ET Narrative 03/18/2025 5:18 PM EDT EXAM: SCREENING MAMMOGRAPHY, BILATERAL HISTORY: SCREENING. No additional history. COMPARISON: 11/27/23, 11/24/22, 11/22/21, 11/19/20 TECHNIQUE: Synthesized CC and MLO projections of each breast. Tomosynthesis of each breast in the CC and MLO projections. ADDITIONAL IMAGING: None Computer-aided detection was employed with the [employer] AI 3-D. TISSUE DENSITY: There are scattered areas of fibroglandular density. (BI-RADS category B) FINDINGS: RIGHT BREAST: No suspicious mass. No suspicious calcification. No distortion. No additional suspicious right breast findings LEFT BREAST: There is a poorly defined 1.1 cm focal asymmetry in the 2 o'clock position 6 cm from the left nipple. I cannot confirm stability. No additional suspicious left breast findings Procedure Note Stanton Ayala MD - 03/18/2025 EXAM: SCREENING MAMMOGRAPHY, BILATERAL HISTORY: SCREENING. No additional history. COMPARISON: 11/27/23, 11/24/22, 11/22/21, 11/19/20 TECHNIQUE: Synthesized CC and MLO projections of each breast.Tomosynthesis of each breast in the CC and MLO projections. ADDITIONAL IMAGING: None Computer-aided detection was employed with the [employer] AI 3-D. TISSUE DENSITY: There are scattered areas of fibroglandular density.(BI-RADS category B) FINDINGS: RIGHT BREAST: No suspicious mass. No suspicious calcification. No distortion. Noadditional suspicious right breast findings LEFT BREAST: There is a poorly defined 1.1 cm focal asymmetry in the 2 o'clock position6 cm from the left nipple. I cannot confirm stability. No additionalsuspicious left breast findings IMPRESSION: Incompletely characterized focal asymmetry 2 o'clock position 6 cm fromleft nipple. Recommend diagnostic left mammography including Tomosynthesis with spotcompression in multiple projections. Recommend full field mediolateralview of the left breast using Tomosynthesis Recommend left breast ultrasound if warranted ASSESSMENT: BI-RADS 0: INCOMPLETE - need additional imaging evaluation and/or priormammograms for comparison RECOMMENDATION(S): 1: Special mammographic view(s) needed LEFT with left breast ultrasound ifwarranted [facility]amm[facility] location: [facility] at [address], [address] -------- FINAL REPORT -------- Dictated By: Stanton Ayala Dictated Date: 03/18/2025 17:12 ET Assigned Physician: Stanton Ayala Reviewed and Electronically Signed By: Stanton Ayala Signed Date: 03/18/2025 17:18 ET Workstation ID: [id number] Transcribed By: Self Edit Transcribed Date: 03/18/2025 17:12 ET us Self Referral Sppl IMG BI PROCEDURES Final Resul t * [facility] DEXA AXIAL SKELETON (05/23/2023 7:43 AM EDT) Anatomical Region Laterality Modality Mammography 05/22/2023 2:28 PM EDT Narrative 05/23/2023 7:43 AM EDT [facility] Diagnostic Imaging Department [address] [place], [place] [id number] Patient: NHITESSPERICO Peng./Age/Sex: 1960 - 62 - F Unit#: [id number] Location/Status: [facility] Mnemonic/[facility] Ordering Physician: GRACE WU MD [facility] Dexa Axial Skeleton - 05/22/231511 Report Status:Signed HISTORY: The patient is a 62-year-old postmenopausal female with clinical concern for metabolic bone disease. FINDINGS: Dual energy x-ray absorptiometry of the lumbar spine and femurs is performed. The mean bone mineral density at L1-2 is 0.946 gm/cm2 which is 81% of that of young normals and 87% of that of age matched controls. This yields a T- score of -1.8 and a Z-score of -1.2 which is diagnostic of osteopenia. The mean bone mineral density of the femurs bilaterally is 0.807 gm/cm2 which is 80% of that of young normals and 86% of that of age matched controls. This yields a T-score of -1.6 and a Z-score of -1.1 which is diagnostic of osteopenia. However, the T-score of the right femoral neck is -2.7 which is diagnostic of osteoporosis. IMPRESSION: 1. Osteoporosis. There has been a decrease of 3.6% in bone mineral density in the lumbar spine since the prior examination of 05/04/2021. There has been a decrease of 5.3% in bone mineral density in the right femur and an increase of 2.6% in bone mineral density in the left femur. 2. FRAX analysis yields a 10-year probability of major osteoporotic fracture of 21.2% and a 10-year probability of hip fracture of 4.9%. Code 66507 Dictating Physician: SATINDER RAYA MD Electronically Signed by: SATINDER RAYA MD Dic Date/Time: 05/23/2341 Sign date/Time: 05/23/2343 Procedure Note Satinder Raya MD - 10/09/2023 [facility] Diagnostic Imaging Department [address] [place] [address] Patient: TESS BENNETT Tala Duckworth/Age/Sex: 1960 - 62 - F Unit#: [id number] Location/Status: [facility] I Mnemonic/Ordering Site: [facility] Ordering Physician: GRACE WU MD [facility] Dexa Axial Skeleton - 05/22/23 - 1512 Report Status:Signed HISTORY: The patient is a 62-year-old postmenopausal female withclinical concern for metabolic bone disease. FINDINGS: Dual energy x-ray absorptiometry of the lumbar spine and femursis performed. The mean bone mineral density at L1-2 is 0.946 gm/cm2 which is81% of that of young normals and 87% of that of age matched controls. This yieldsa T- score of -1.8 and a Z-score of -1.2 which is diagnostic of osteopenia. The mean bone mineral density of the femurs bilaterally is 0.807 gm/ok1zwewt is 80% of that of young normals and 86% of that of age matched controls.This yields a T-score of -1.6 and a Z-score of -1.1 which is diagnostic of osteopenia. However, the T-score of the right femoral neck is -2.7 whichis diagnostic of osteoporosis. IMPRESSION: 1. Osteoporosis. There has been a decrease of 3.6% in bone mineraldensity in the lumbar spine since the prior examination of 05/04/2021. There has elder decrease of 5.3% in bone mineral density in the right femur and anincrease of 2.6% in bone mineral density in the left femur. 2. FRAX analysis yields a 10-year probability of major osteoporoticfracture of 21.2% and a 10-year probability of hip fracture of 4.9%. Code 27621 Dictating Physician: SATINDER RAYA MD Electronically Signed by: SATINDER RAYA MD Dic Date/Time: 05/23/23 0741 Sign date/Time: 05/23/23 0743 Grace Wu MD IMG BI PROCEDURES Fi nal Result from Last 3 Months or Most Recently Relevant to Health Maintenance Insurance [employer] [place] Care Teams Fence Installer Relationship Specialty Start Date End Date Grace Wu MD [address] [place] [address] PCP - General Endocrinology 03/18/25
== END 2025-05-21 14:16 | disposition home or self-care (01) ==
PROVIDERS: PCP Internal Medicine Endocrinology, Diabetes & Metabolism; Visit Provider Internal Medicine Rheumatology
DX: M35.09 Sjogren syndrome with other organ involvement (principal); M17.11 Unilateral primary osteoarthritis, right knee
CPT/HCPCS: 99214

== ENCOUNTER 2025-05-21 13:20 | Outpatient (REF) | payer OTHER, SELFPAY ==
[2025-05-21 17:28] LABS: MANUAL DIFF FLAG NO
[2025-05-21 18:00] LABS: Hematocrit 42.6 % (37.0-47.0); Hemoglobin 14.6 g/dl (12.0-16.0); Imm Gran Abs Auto 0.01 X10*3/uL (0.00-0.03); Imm Gran Pct Auto 0.2 % (0.0-0.4); Lymphocytes Absolute Auto 1.8 X10*3/uL (1.2-4.9); Mean Corpuscular HGB Conc 34.3 g/dl (31.0-35.0); Mean Corpuscular Hemoglobin 35.3 pg (27.0-33.0); Mean Corpuscular Volume 102.9 fL (80.0-98.0); NRBC Abs Auto 0.000 X10*3/uL (0.0-0.012); NRBC Pct Auto 0.0 /100WBC (0.0-0.2); Platelet Count 197 X10*3/uL (160-400); Red Blood Count 4.14 X10*6/uL (4.20-5.50); White Blood Count 5.3 X10*3/uL (4.8-10.8)
[2025-05-21 18:20] LABS: Alanine Aminotransferase 28 U/L (0-31); Aspartate Amino Transferase 24 U/L (5-31); Estimated Glomerular Filt Rate > 60
== END 2025-05-21 13:21 | disposition home or self-care (01) ==
LOC: HO.HKASLDS 13:20
PROVIDERS: PCP Internal Medicine Endocrinology, Diabetes & Metabolism; Visit Provider Internal Medicine Rheumatology
DX: M35.09 Sjogren syndrome with other organ involvement (principal); M17.11 Unilateral primary osteoarthritis, right knee; Z79.60 Long term (current) use of unspecified immunomodulators and immunosuppressants
CPT/HCPCS: 36415; 82565; 84450; 84460; 85025; 85652; 86140

== ENCOUNTER 2025-08-13 09:34 | Outpatient (REF) | payer OTHER, SELFPAY ==
[2025-08-13 14:11] LABS: MANUAL DIFF FLAG NO
[2025-08-13 14:15] LABS: Hematocrit 45.5 % (37.0-47.0); Hemoglobin 14.9 g/dl (12.0-16.0); Imm Gran Abs Auto 0.01 X10*3/uL (0.00-0.03); Imm Gran Pct Auto 0.2 % (0.0-0.4); Lymphocytes Absolute Auto 1.6 X10*3/uL (1.2-4.9); Mean Corpuscular HGB Conc 32.7 g/dl (31.0-35.0); Mean Corpuscular Hemoglobin 34.5 pg (27.0-33.0); Mean Corpuscular Volume 105.3 fL (80.0-98.0); NRBC Abs Auto 0.000 X10*3/uL (0.0-0.012); NRBC Pct Auto 0.0 /100WBC (0.0-0.2); Platelet Count 220 X10*3/uL (160-400); Red Blood Count 4.32 X10*6/uL (4.20-5.50); White Blood Count 5.9 X10*3/uL (4.8-10.8)
[2025-08-13 14:31] LABS: Alanine Aminotransferase 37 U/L (0-31); Aspartate Amino Transferase 34 U/L (5-31); Estimated Glomerular Filt Rate > 60
== END 2025-08-13 09:35 | disposition home or self-care (01) ==
LOC: HO.HKASLDS 09:34
PROVIDERS: PCP Internal Medicine Endocrinology, Diabetes & Metabolism; Visit Provider Internal Medicine Rheumatology
DX: M35.09 Sjogren syndrome with other organ involvement (principal); M17.11 Unilateral primary osteoarthritis, right knee; Z79.899 Other long term (current) drug therapy
CPT/HCPCS: 36415; 82565; 84450; 84460; 85025; 85652; 86140

== ENCOUNTER 2025-08-13 09:34 | Outpatient (AMB) | payer OTHER, SELFPAY ==
--- NOTE | 2025-08-13 09:36 | MHC.OFFVIS ---
Vital Signs 08/13/25 09:37 Height 5 ft 3 in Weight 196 lb 13.965 oz BMI 34.9 BP 100/80 Blood Pressure Location Rt brachial Position Sitting Pulse 75 Pulse Source Pulse Oximeter Pulse Oximetry (%) 97 Oxygen Delivery Method Room Air Intake Visit Reasons: 3 Months Intake Note: Patient presents for 3 months follow up for sjorgens. Accompanied by: Self / Same As Patient Allergies diphenhydramine (From Benadryl Allergy) Allergy (Mild, Verified 08/13/25 09:37) restleless legs HPI HPI 3 Months: Details: She had a tooth infection and COVID-19. She was off of leflunomide until . She has no morning stiffness. No new joint pain. She feels fatigued throughout the day. 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 [employer] [facility] Medical History Lichen sclerosus Family History Mother Hypertension Diverticulitis Social History Household Members: Spouse Housing: House Alcohol intake: current Comment: Ocassionally Patient Tobacco Use Status: Never used Tobacco Physical Exam Vital Signs: Last Vital Signs Pulse 75 08/13/25 09:37 BP 100/80 08/13/25 09:37 Pulse Ox 97 08/13/25 09:37 Oxygen Delivery Method Room Air 08/13/25 09:37 BMI result Body Mass Index 34.9 Const Other: General: Comfortable CVS: RRR Respiratory: clear to auscultation bilaterally. Good respiratory effort Skin: No lesions seen MSK: No tender joints. Synovitis of left 2nd and 3rd MCP. Normal range of motion of upper extremity and lower extremity. Assessment & Plan Assessment & Plan (1) Sjogren syndrome: Comment: With inflammatory arthritis. She has recurrences synovitis of left 2nd and 3rd MCPs since holding leflunomide after tooth infection. Then she contracted COVID-19 infection. She was off of leflunomide for 1 month. She recently restarted after . Need more time for full effectiveness. I will consider intra-articular cortisone injection next visit. She has failed prednisone courses and NSAIDs Celebrex to control inflammatory arthritis of left hand. Rheumatology history: She has Sjogren syndrome biopsy-proven with gland focus score 4. JANEY negative. SSA antibody positive. Inflammatory arthritis affecting hands. HCQ 03/2021-, leflunomide 03/2024- dose reduced to 10 mg q.d. due to transaminitis. Code(s): M35.00 - Sjogren syndrome, unspecified Category: Medical Qualifiers: Sjogren organ or system involvement: other organ involvement Qualified Code(s): M35.09 - Sjogren syndrome with other organ involvement Plan: Continue hydroxychloroquine 400 mg daily. Eye exam 10/2023 OCT okay. Visual field 12/30/2024 ok. Continue leflunomide 10 mg daily Labs for disease monitoring and drug monitoring on high-risk medication ordered Dry eyes: Elementary Librarian recommended she try OTC artificial tears. Return to clinic in 3 months (2) Osteoarthritis of right knee: Comment: Intermittent right knee clicking and pain is due to osteoarthritis. X-ray from 2022 reveals bilateral knee osteoarthritis ([facility] records). We discussed conservative management. Code(s): M17.11 - Unilateral primary osteoarthritis, right knee Category: Medical Plan: Encouraged weight loss. Weight loss goal 10 lb for next visit. I recommend that she consider medical management with weight loss medications. She has had a difficult time losing weight in the past. She will further discuss with her PCP in October 2025. 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 therapy C Reactive Protein Today Z79.899 - Other longterm (current) drug therapy Erythrocyte Sedimentation Rate Today Z79.899 - Other local company intermodal truck driver (current) drug therapy Complete Blood Count Auto Diff Today Z79.899 - Other longterm (current) drug therapy Aspartate Amino Transferase Today Z79.899 - Other local company intermodal truck driver (current) drug therapy Creatinine Today Z79.899 - Other local company intermodal truck driver (current) drug therapy Medications: Refilled leflunomide 10 mg PO DAILY 90 tabs 0RF 90 days M35.09 - Sjogren syndrome with other organ involvement Coding Level of Care Code Est Pt Level 4 (10965) Add On Problem Visit Only Diagnoses Sjogren's syndrome with other organ involvement M35.09 Sjogren organ or system involvement: other organ involvement Osteoarthritis of right knee M17.11
[2025-08-13 09:37] VITALS: BP 100/80; PULSE 75; O2SAT 97; BMI 34.9
== END 2025-08-13 10:18 | disposition home or self-care (01) ==
LOC: HO.RHES 09:35
PROVIDERS: PCP Internal Medicine Endocrinology, Diabetes & Metabolism; Visit Provider Internal Medicine Rheumatology
DX: M35.09 Sjogren syndrome with other organ involvement (principal); M17.11 Unilateral primary osteoarthritis, right knee
CPT/HCPCS: 99214